=== PATIENT | female | born 1930 | race Caucasian/White ===

== ENCOUNTER 2018-06-28 16:28 | Inpatient (IN) ==
--- NOTE | 2018-06-28 17:21 | ED ---
HPI General Chief Complaint: Syncope Stated Complaint: syncope Time Seen by Provider: 06/28/18 16:32 Source: EMS, RN notes reviewed and old records reviewed Mode of arrival: EMS Limitations: altered mental status History of Present Illness HPI narrative: 87-year-old female arrives via EMS. 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 Blood pressure on scene was in the 90s. The patient was rushed to the ED. She has no pain here however history is limited due to forgetfulness. History is obtained primarily by medical records and EMS. MD complaint: collapsed Onset (ago): minute(s) (30) -: second(s) Witnessed: yes - by other Context: other (While doing hair) Injuries sustained associated with event: none Current symptoms: none Related Data Home Medications Medication Instructions Recorded Confirmed amiodarone 200 mg PO DAILY 06/28/18 06/28/18 collagenase clostridium histo. 1 applic TOPICAL 3XW 06/28/18 06/28/18 [Santyl] furosemide 20 mg PO Q OTHER DAY PRN 06/28/18 06/28/18 isosorbide mononitrate 30 mg PO HS 06/28/18 06/28/18 lisinopril 5 mg PO DAILY 06/28/18 06/28/18 potassium chloride 20 meq PO DAILY 06/28/18 06/28/18 spironolactone 12.5 mg PO DAILY 06/28/18 06/28/18 Allergies Allergy/AdvReac Type Severity Reaction Status Date / Time Sulfonylureas Allergy Intermediate rash Unverified 06/28/18 16:42 Review of Systems ROS Unobtainable ROS Unobtainable: unobtainable due to mental condition PMFSH Medical History Medical History Atherosclerotic heart disease (Acute) CHF (congestive heart failure) (Acute) COPD (chronic obstructive pulmonary disease) (Acute) Chronic kidney disease (Acute) Osteoporosis (Acute) Social History Social History Second Hand Smoke Exposure: No Smoking Status: Never smoker How Often Do You Have a Drink Containing Alcohol: Never Recent Travel in [place] within the Last 8 Weeks: No Recent Out of Country Travel within the Last 8 Weeks: No Immunization History Tetanus Immunization: Unable to Assess Hx Influenza Vaccine This Season: Unable to Assess Exam Narrative Exam Narrative: GENERAL: Well-nourished well-developed 87-year-old female no acute distress SKIN: Focused skin assessment warm/dry. HEAD: Atraumatic. Normocephalic. EYES: Pupils equal and round. No scleral icterus. No injection or drainage. ENT: No nasal bleeding or discharge. Mucous membranes pink and moist. NECK: Trachea midline. No JVD. CARDIOVASCULAR: Bradycardia. Regular. RESPIRATORY: No accessory muscle use. Clear to auscultation. Breath sounds equal bilaterally. GASTROINTESTINAL: Abdomen soft, non-tender, nondistended. Hepatic and splenic margins not palpable. MUSCULOSKELETAL: No tenderness about the bony prominences. No gross abnormality NEUROLOGICAL: Cranial nerves are symmetric. Patient moves all extremities normally. Recent memory is impaired limiting history. PSYCHIATRIC: Unable to assess. Normal attire. Course Initial Documented Vital Signs Pulse Rate 50 L 06/28/18 16:30 Respiratory Rate 18 06/28/18 16:30 Blood Pressure 147/62 H 06/28/18 16:30 Pulse Oximetry 96 06/28/18 16:30 Last Documented Vital Signs Temperature 97.4 F L 06/28/18 16:42 Pulse Rate 49 L 06/28/18 18:15 Respiratory Rate 16 06/28/18 18:15 Blood Pressure 150/51 H 06/28/18 18:15 Pulse Oximetry 97 06/28/18 18:15 Critical Care Time Critical Care Time: Yes Total Critical Care Time: 45 Attestation: Aggregate critical care time was 45 minutes. Time to perform other separately billable procedures was not included in the critical care time. My time did not include minutes spent treating any other patients simultaneously or on activities that did not directly contribute to the patient's treatment. The services I provided to this patient were to treat and/or prevent clinically significant deterioration that could result in: Bradycardia with cardiopulmonary arrest I provided critical care services requiring my management, as noted below: Chart data review, documentation time, medication orders and management, vital sign assessments/reviewing monitor data, ordering and reviewing lab tests, ordering and interpreting/reviewing x-rays and diagnostic studies, care of the patient and discussion of the patient with the admitting physicians. Medical Decision Making MDM Narrative Medical decision making narrative: The patient has syncope episode with hypotension. In the ED the patient has been bradycardic in the 40s. Blood pressure has increased to 147/62. Trending the heart rate back over the past few years shows a rate in the 60s or 70s typically. We see the rate is sinus today although 2-1 block is of concern. Patient will go to the [facility] [place]. Rocephin ordered. Atropine ordered and is at bedside if the heart rate should dipped below 40. This was discussed with the RN. Medical Records Medical records reviewed: Yes I reviewed the patient's medical records. Lab Data Lab results reviewed: Yes I reviewed the patient's lab results. Lab results narrative: Renal insufficiency is stable Troponin 0 0.04 Urinalysis consistent with UTI Result diagrams: 06/28/18 17:20 06/28/18 17:20 Lab Results 06/28/18 06/28/18 06/28/18 Range/Units 16:49 17:20 17:20 CBC w Diff Auto diff final WBC 4.6 (4.0-11.0) th/mm3 RBC 4.15 (4.00-5.30) mil/mm3 Hgb 12.9 (11.6-15.3) gm/dL Hct 39.4 (35.0-46.0) % MCV 94.9 (80.0-100.0) fL MCH 31.0 (27.0-34.0) pg MCHC 32.7 (32.0-36.0) % RDW 13.6 (11.6-17.2) % Plt Count 103 L (150-450) th/mm3 MPV 7.2 (7.0-11.0) fL Neut % (Auto) 76.4 H (16.0-70.0) % Lymph % (Auto) 12.0 (9.0-44.0) % [place] % (Auto) 9.3 H (0.0-8.0) % Eos % (Auto) 1.6 (0.0-4.0) % Baso % (Auto) 0.7 (0.0-2.0) % Neut # (Auto) 3.5 (1.8-7.7) th/mm3 Lymph # (Auto) 0.6 L (1.0-4.8) th/mm3 [place] # (Auto) 0.4 (0.0-0.9) th/mm3 Eos # (Auto) 0.1 (0.0-0.4) th/mm3 Baso # (Auto) 0.0 (0.0-0.2) th/mm3 WBC Differential . Differential Comment . Sodium 138 (136-145) meq/L Potassium 4.2 (3.5-5.1) meq/L Chloride 102 (98-107) meq/L Carbon Dioxide 30.9 (21.0-32.0) meq/L Anion Gap 5 (5-15) meq/L BUN 35 H (7-18) mg/dL Creatinine 1.60 H (0.50-1.00) mg/dL Estimated GFR 30 L (>89) mL/min POC Glucose 109 (68-110) mg/dl Random Glucose 103 (74-106) mg/dL Calcium 8.2 L (8.5-10.1) mg/dL Total Bilirubin 0.5 (0.2-1.0) mg/dL AST 15 (15-37) U/L ALT 18 (10-53) U/L Alkaline Phosphatase 62 (45-117) U/L Ammonia (11-32) mcmol/L Total Creatine Kinase (26-192) U/L Troponin I 0.04 (0.02-0.05) ng/mL Total Protein 6.7 (6.4-8.2) g/dL Albumin 3.3 L (3.4-5.0) g/dL TSH 5.270 H (0.358-3.740) uIU/mL Urine Color (Yellw/Straw) Urine Clarity (Clear) Urine pH (5.0-8.5) Ur Specific [place] (1.002-1.035) Urine Protein (Neg-Trace) mg/dL Urine Glucose (UA) (Negative) mg/dL Urine Ketones (Negative) mg/dL Urine Occult Blood (Negative) Urine Nitrate (Negative) Urine Bilirubin (Negative) Urine Urobilinogen (Less than 2) mg/dL Ur Leukocyte Esterase (Negative) Urine RBC (0-3) /hpf Urine WBC (0-5) /hpf Ur Squamous Epith Cells (0-5) /hpf Triple Phos Crystals (None) /hpf Urine Bacteria (None) /hpf Micro UA Comment Urine Culture Comments 06/28/18 06/28/18 06/28/18 Range/Units 17:20 17:20 17:20 CBC w Diff WBC (4.0-11.0) th/mm3 RBC (4.00-5.30) mil/mm3 Hgb (11.6-15.3) gm/dL Hct (35.0-46.0) % MCV (80.0-100.0) fL MCH (27.0-34.0) pg MCHC (32.0-36.0) % RDW (11.6-17.2) % Plt Count (150-450) th/mm3 MPV (7.0-11.0) fL Neut % (Auto) (16.0-70.0) % Lymph % (Auto) (9.0-44.0) % [place] % (Auto) (0.0-8.0) % Eos % (Auto) (0.0-4.0) % Baso % (Auto) (0.0-2.0) % Neut # (Auto) (1.8-7.7) th/mm3 Lymph # (Auto) (1.0-4.8) th/mm3 [place] # (Auto) (0.0-0.9) th/mm3 Eos # (Auto) (0.0-0.4) th/mm3 Baso # (Auto) (0.0-0.2) th/mm3 WBC Differential Differential Comment Sodium (136-145) meq/L Potassium (3.5-5.1) meq/L Chloride (98-107) meq/L Carbon Dioxide (21.0-32.0) meq/L Anion Gap (5-15) meq/L BUN (7-18) mg/dL Creatinine (0.50-1.00) mg/dL Estimated GFR (>89) mL/min POC Glucose (68-110) mg/dl Random Glucose (74-106) mg/dL Calcium (8.5-10.1) mg/dL Total Bilirubin (0.2-1.0) mg/dL AST (15-37) U/L ALT (10-53) U/L Alkaline Phosphatase (45-117) U/L Ammonia Less than 10 L (11-32) mcmol/L Total Creatine Kinase 38 (26-192) U/L Troponin I (0.02-0.05) ng/mL Total Protein (6.4-8.2) g/dL Albumin (3.4-5.0) g/dL TSH (0.358-3.740) uIU/mL Urine Color Yellow (Yellw/Straw) Urine Clarity Cloudy H (Clear) Urine pH 8.5 (5.0-8.5) Ur Specific [place] Less/equal 1.005 (1.002-1.035) Urine Protein Negative (Neg-Trace) mg/dL Urine Glucose (UA) Negative (Negative) mg/dL Urine Ketones Negative (Negative) mg/dL Urine Occult Blood Negative (Negative) Urine Nitrate Negative (Negative) Urine Bilirubin Negative (Negative) Urine Urobilinogen 1.0 (Less than 2) mg/dL Ur Leukocyte Esterase Small H (Negative) Urine RBC 0-3 (0-3) /hpf Urine WBC 0-5 (0-5) /hpf Ur Squamous Epith Cells 0-5 (0-5) /hpf Triple Phos Crystals Few H (None) /hpf Urine Bacteria Many H (None) /hpf Micro UA Comment Culture indicated Urine Culture Comments Culture indicated Imaging Data Radiologist's impression: Chest X-Ray 06/28/18 16:42 CONCLUSION: Minimal basilar atelectasis or scarring. Aortic stent graft as above. Head CT 06/28/18 16:42 CONCLUSION: 1. No acute intracranial abnormality. 2. Chronic small vessel ischemic change. 3. 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 . ECG Data Attestation: I personally reviewed and interpreted this ECG as follows: Interpretation: EKG shows a regular rhythm with a rate of 44 right bundle branch block present Discharge Plan Discharge Disposition Patient Disposition: 30 Still Patient Physicians Team ED Provider: Brody Kimble Primary Care Provider: UNKNOWN, Rxs /Orders / Referrals /Forms Prescriptions: No Action amiodarone 200 mg Tablet 200 mg PO DAILY RF: 0 isosorbide mononitrate 30 mg Tablet Extended Release 24 Hr 30 mg PO HS RF: 0 spironolactone 25 mg Tablet 12.5 mg PO DAILY RF: 0 potassium chloride 40 mEq/15 mL Liquid 20 meq PO DAILY RF: 0 lisinopril 5 mg Tablet 5 mg PO DAILY RF: 0 furosemide 20 mg Tablet 20 mg PO Q OTHER DAY PRN (Reason: Edema) RF: 0 collagenase clostridium histo. [Santyl] 250 unit/gram Ointment 1 applic TOPICAL 3XW RF: 0 Discharge Interventions Interventions: Vital Signs Last Done: 06/28/18 16:30 Status ED Status: With Doctor
[2018-06-28 17:31] LABS: Baso % (Auto) 0.7 % (0.0-2.0); Eos # (Auto) 0.1 th/mm3 (0.0-0.4); Eos % (Auto) 1.6 % (0.0-4.0); Hematocrit 39.4 % (35.0-46.0); Hemoglobin 12.9 gm/dL (11.6-15.3); Lymph # (Auto) 0.6 th/mm3 (1.0-4.8); Mean Corpuscular HGB Conc 32.7 % (32.0-36.0); Mean Corpuscular Volume 94.9 fL (80.0-100.0); Mean Platelet Volume 7.2 fL (7.0-11.0); Mono # (Auto) 0.4 th/mm3 (0.0-0.9); Mono % (Auto) 9.3 % (0.0-8.0); Neut # (Auto) 3.5 th/mm3 (1.8-7.7); Neut % (Auto) 76.4 % (16.0-70.0); Platelet Count 103 th/mm3 (150-450); Red Blood Count 4.15 mil/mm3 (4.00-5.30); Red Cell Distribution Width 13.6 % (11.6-17.2); White Blood Count 4.6 th/mm3 (4.0-11.0)
[2018-06-28 17:35] LABS: Bilirubin,Urine Negative (Negative); Clarity,Urine Cloudy (Clear); Color,Urine Yellow (Yellw/Straw); Glucose,Urine (UA) Negative (Negative); Leukocyte Esterase,Urine Small (Negative); Nitrite,Urine Negative (Negative); PH,Urine 8.5 (5.0-8.5); RBC,Urine 0-3 /hpf (0-3); Specific Gravity,Urine Less/Equal 1.005 (1.002-1.035); WBC,Urine 0-5 /hpf (0-5)
[2018-06-28 17:36] LABS: Bacteria,Urine Many /hpf; Squamous Epithelial Cell,Urine 0-5 /hpf (0-5); Triple Phosphate Crystal,Urine Few /hpf
--- NOTE | 2018-06-28 17:37 | XR ---
EXAM DATE: 06/28/2018 5:32 PM EDT AGE/SEX: 87 years / Female INDICATIONS: Short of breath. CLINICAL DATA: This is the patient's initial encounter. Patient reports that signs and symptoms have been present for 1 day and indicates a pain score of Nonresponsive. MEDICAL/SURGICAL HISTORY: Non-responsive. . Aortic mesh surgery. COMPARISON: No prior exams available for comparison. FINDINGS: Previous stent graft present in the ascending, transverse and descending thoracic aorta as well as me diastinal vessel. Basilar atelectasis or scarring. Cardiomegaly. No pneumothorax. No significant effu billie. CONCLUSION: Minimal basilar atelectasis or scarring. Aortic stent graft as above. Electronically signed by: Abhijit Roper MD 06/28/2018 5:36 PM EDT
[2018-06-28 17:38] LABS: Chloride 102 meq/L (98-107); Potassium 4.2 meq/L (3.5-5.1); Sodium 138 meq/L (136-145)
[2018-06-28 17:41] LABS: Albumin 3.3 g/dL (3.4-5.0); Anion Gap 5 meq/L (5-15); Blood Urea Nitrogen 35 mg/dL (7-18); Calcium 8.2 mg/dL (8.5-10.1); Carbon Dioxide 30.9 meq/L (21.0-32.0); Glucose,Random 103 mg/dL (74-106)
[2018-06-28 17:44] LABS: Alanine Aminotransferase 18 U/L (10-53)
[2018-06-28 17:45] LABS: Aspartate Aminotransferase 15 U/L (15-37); Glomerular Filtration Rate 30 mL/min (>89)
[2018-06-28 17:46] LABS: Total Protein 6.7 g/dL (6.4-8.2)
[2018-06-28 17:47] LABS: Alkaline Phosphatase 62 U/L (45-117)
[2018-06-28 17:50] LABS: Troponin I 0.04 ng/mL (0.02-0.05)
--- NOTE | 2018-06-28 17:54 | CT ---
EXAM DATE: 06/28/2018 5:42 PM EDT AGE/SEX: 87 years / Female INDICATIONS: Syncope. CLINICAL DATA: This is the patient's initial encounter. Patient reports that signs and symptoms have been present for 1 day and indicates a pain score of 0/10. MEDICAL/SURGICAL HISTORY: None. None. RADIATION DOSE: 55.67 CTDI (mGy) COMPARISON: No prior exams available for comparison. TECHNIQUE: CT of the head without contrast. Using automated exposure control and adjustment of the mA and/or kV according to patient size, radiation dose was kept as low as reasonably achievable to ob tain optimal diagnostic quality images. DICOM format image data is available electronically for revi ew and comparison. FINDINGS: Cerebrum: Periventricular low attenuation change involving both cerebral hemispheres. Small chronic lacunar infarction involving the head of caudate on the left. The ventricles are normal for age. No evidence of midline shift, mass lesion, hemorrhage or acute infarction. No extraaxial fluid collecti ons are seen. Posterior Fossa: The cerebellum and brainstem are intact. The 4th ventricle is midline. The cerebe llopontine angle is unremarkable. Extracranial: The visualized portion of the orbits is intact. Skull: The calvaria is intact. An elliptical area of sclerosis is seen involving the lateral parieta l bone on the left. This involves the outer table. No evidence of skull fracture. CONCLUSION: 1. No acute intracranial abnormality. 2. Chronic small vessel ischemic change. 3. 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 . Electronically signed by: Nicholas Roy MD 06/28/2018 5:52 PM EDT
[2018-06-28] MEDS ORDERED: Atropine Inj 1 MG/10 ML Syringe IV.PUSH ONE (18:25)
[2018-06-28 19:20] LABS: Amphetamine Screen,Urine Neg (Neg); Barbiturate Screen,Urine Neg (Neg); Cannabinoid Screen,Urine Neg (Neg); Cocaine Screen,Urine Neg (Neg)
[2018-06-28 19:22] LABS: Opiate Screen,Urine Neg (Neg)
--- NOTE | 2018-06-28 21:22 | P.HPCC ---
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 Blood pressure on scene was in the 90s. The patient was rushed to the ED at [place]. She has had no pain there however history is limited due to forgetfulness. History is obtained primarily from medical records. The weakness loss of consciousness was about 30 seconds. No seizure activity. The patient's heart rate at [place] emergency department was found to be in 40s and she has been transferred to [facility] for further cardiological evaluation. Inpatient Certification: I certify that the inpatient services were ordered in accordance with Medicare regulations governing the order. This includes certification that hospital inpatient services are reasonable and necessary and in the case of services not specified as inpatient-only under 42 CFR 419.22(n), that they are appropriately provided as inpatient services in accordance to with the 2-midnight benchmark under 43 CFR 412.3(e) Review of Systems unobtainable due to mental condition PMFSH - History History Provided By: Patient, Medical Record - Medical History Medical History: Medical History (Last Updated 06/28/18 @ 17:58 by Kezia Blount RN) Atherosclerotic heart disease CHF (congestive heart failure) COPD (chronic obstructive pulmonary disease) Chronic kidney disease Osteoporosis - Tobacco History Second Hand Smoke Exposure: No Smoking Status: Never smoker - Alcohol History How Often Do You Have a Drink Containing Alcohol: Never - Travel History Recent Travel in the [place] Within the Last 8 Weeks: No Recent Travel Out of the Country Within the Last 8 Weeks: No - Immunization History Tetanus Immunization: Unable to Assess Hx Influenza Vaccine This Season: Unable to Assess Medications and Allergies Active Medications: Active Medications Sodium Chloride (Ns Flush) 2 ml IV.FLUSH PRN PRN PRN Reason: FLUSH AFTER USING IV ACCESS Active Medications Acetaminophen (Tylenol) 650 mg PO Q6H PRN PRN Reason: PAIN 1-10 AND/OR FEVER >101F Al Hydroxide/Mg Hydroxide (Milk Of Magnesia Liq) 30 ml PO Q12H PRN PRN Reason: Mild Constipation Albuterol (Duoneb Neb (Prn)) 1 ampul NEB Q2HR NEB PRN PRN Reason: WHEEZING Bisacodyl (Dulcolax Supp) 10 mg RECTAL DAILY PRN PRN Reason: SEVERE CONSITIPATION Chlorhexidine Gluconate (Chlorhexidine 2% Cloth) 3 pack TOPICAL DAILY@0400 ROXI Stop: 07/04/18 03:59 Chlorhexidine Gluconate (Chlorhexidine 2% Cloth) 3 pack TOPICAL DAILY@0400 PRN PRN Reason: Extra cloth needed Stop: 07/04/18 03:59 Famotidine (Pepcid Pf Inj) 10 mg IV.PUSH Q12HR [facility] Heparin Sodium (Porcine) (Heparin Inj) 5,000 units SQ Q8H [facility] Last Admin: 06/28/18 23:21 Dose: 5,000 units Sodium Chloride (Ns Inj) 1,000 mls @ 84 mls/hr IV.CONT .[id number] [facility] Last Admin: 06/28/18 23:19 Dose: 84 mls/hr Lactulose (Lactulose Liq) 30 ml PO DAILY PRN PRN Reason: SEVERE CONSITIPATION Metoclopramide HCl (Reglan Inj) 5 mg IV.PUSH Q6HR [facility]; Protocol Last Admin: 06/29/18 01:37 Dose: 5 mg Ondansetron HCl (Zofran Inj) 4 mg IV.PUSH Q6H PRN PRN Reason: NAUSEA OR VOMITING Senna/Docusate Sodium (Sheron-Colace) 1 tab PO BID [facility] Sennosides (Senokot) 17.2 mg PO Q12H PRN PRN Reason: Moderate Constipation Sodium Chloride (Ns Flush) 2 ml IV.FLUSH BID [facility] Sodium Chloride (Ns Flush) 2 ml IV.FLUSH UNSCH PRN PRN Reason: FLUSH AFTER USING IV ACCESS Allergies Allergy/AdvReac Type Severity Reaction Status Date / Time Sulfonylureas Allergy Intermediate rash Verified 06/28/18 19:40 Home Medications Medication Instructions Recorded Confirmed Type amiodarone 200 mg PO DAILY 06/28/18 06/28/18 History collagenase clostridium histo. 1 applic TOPICAL 3XW 06/28/18 06/28/18 History [Santyl] furosemide 20 mg PO Q OTHER DAY PRN 06/28/18 06/28/18 History isosorbide mononitrate 30 mg PO HS 06/28/18 06/28/18 History lisinopril 5 mg PO DAILY 06/28/18 06/28/18 History potassium chloride 20 meq PO DAILY 06/28/18 06/28/18 History spironolactone 12.5 mg PO DAILY 06/28/18 06/28/18 History Results - Labs CBC & Chem 7: 06/28/18 17:20 06/28/18 17:20 Labs: Short CBC 06/28/18 Range/Units 17:20 WBC 4.6 (4.0-11.0) th/mm3 Hgb 12.9 (11.6-15.3) gm/dL Hct 39.4 (35.0-46.0) % Plt Count 103 L (150-450) th/mm3 BMP 06/28/18 17:20 Sodium 138 Potassium 4.2 Chloride 102 Carbon Dioxide 30.9 BUN 35 H Creatinine 1.60 H Calcium 8.2 L Cardiac Enzymes 06/28/18 06/28/18 Range/Units 17:20 17:20 Total Creatine Kinase 38 (26-192) U/L Troponin I 0.04 (0.02-0.05) ng/mL Liver Function 06/28/18 Range/Units 17:20 Total Bilirubin 0.5 (0.2-1.0) mg/dL AST 15 (15-37) U/L ALT 18 (10-53) U/L Alkaline Phosphatase 62 (45-117) U/L Albumin 3.3 L (3.4-5.0) g/dL Urine 06/28/18 Range/Units 17:20 Urine Color Yellow (Yellw/Straw) Urine Clarity Cloudy H (Clear) Urine pH 8.5 (5.0-8.5) Ur Specific [place] Less/equal 1.005 (1.002-1.035) Urine Protein Negative (Neg-Trace) mg/dL Urine Glucose (UA) Negative (Negative) mg/dL - Imaging Impressions Chest X-Ray 06/28/18 16:42 CONCLUSION: Minimal basilar atelectasis or scarring. Aortic stent graft as above. Head CT 06/28/18 16:42 CONCLUSION: 1. No acute intracranial abnormality. 2. Chronic small vessel ischemic change. 3. 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 . Exam Vital signs: Vital Signs 06/28/18 16:30 06/28/18 16:42 06/28/18 16:46 Temperature 97.4 F L Pulse Rate 50 L 45 L Respiratory Rate 18 16 Blood Pressure 147/62 H 123/64 Pulse Oximetry 96 97 96 06/28/18 18:15 06/28/18 19:45 06/28/18 19:48 Temperature Pulse Rate 49 L 48 L 48 L Respiratory Rate 16 20 Blood Pressure 150/51 H 159/64 H Pulse Oximetry 97 94 L 06/28/18 20:20 06/28/18 20:54 Temperature Pulse Rate 46 L Respiratory Rate 18 Blood Pressure 132/84 Pulse Oximetry 96 Intake & Output 06/28/18 06/28/18 06/29/18 06:59 18:59 06:59 Weight 57 kg - Constitutional mild distress - Routine HEENT Exam Head: Present: normocephalic, atraumatic Eye: Present: PERRL ENT: Present: mucous membranes moist - Routine Neck Exam Present: full ROM. Absent: JVD, carotid bruit - Routine Respiratory Exam Absent: accessory muscle use, rhonchi, stridor, wheezes - Routine Cardiovascular Exam Present: RRR, S1, S2 - Routine Abdominal Exam Present: soft, normoactive bowel sounds. Absent: tenderness - Routine Extremities Exam Absent: cyanosis, clubbing, edema - Routine Skin Exam Present: intact. Absent: cyanosis, erythema - Routine Neurological Exam Present: alert, altered mental status, moving all extremities Caprini VTE Risk Assessment Caprini VTE Risk Assessment: Moderate/High Risk (score >= 2) Caprini Risk Assessment Model: Point Value = 1 Point Value = 2 Point Value = 3 Point Value = 5 Age 41-60 Minor surgery BMI > 25 kg/m2 Swollen legs Varicose veins or History of unexplained or recurrent spontaneous Oral contraceptives or hormone replacement Sepsis (< 1 month) Serious lung disease, including pneumonia (< 1 month) Abnormal pulmonary function Acute myocardial infarction Congestive heart failure (< 1 month) History of inflammatory bowel disease Medical patient at bed rest Age 61-74 Arthroscopic surgery Major open surgery (> 45 min) Laparoscopic surgery (> 45 min) Malignancy Confined to bed (> 72 hours) Immobilizing plaster cast Central venous access Age >= 75 History of VTE Family history of VTE Factor V Leiden Prothrombin [id number] Lupus anticoagulant Anticardiolipin antibodies Elevated serum homocysteine Heparin-induced thrombocytopenia Other congenital or acquired thrombophilia Stroke (< 1 month) Elective arthroplasty Hip, pelvis, or leg fracture Acute spinal cord injury (< 1 month) Prophylaxis Regimen: Total Risk Factor Score Risk Level Prophylaxis Regimen 0-1 Low Early ambulation 2 Moderate Order ONE of the following: *Sequential Compression Device (SCD) *Heparin 5000 units SQ BID 3-4 Higher Order ONE of the following medications: *Heparin 5000 units SQ TID *Enoxaparin/Lovenox 40 mg SQ daily (WT < 150 kg, CrCl > 30 mL/min) *Enoxaparin/Lovenox 30 mg SQ daily (WT < 150 kg, CrCl > 10-29 mL/min) *Enoxaparin/Lovenox 30 mg SQ BID (WT < 150 kg, CrCl > 30 mL/min) AND/OR *Sequential Compression Device (SCD) 5 or more Highest Order ONE of the following medications: *Heparin 5000 units SQ TID (Preferred with Epidurals) *Enoxaparin/Lovenox 40 mg SQ daily (WT < 150 kg, CrCl > 30 mL/min) *Enoxaparin/Lovenox 30 mg SQ daily (WT < 150 kg, CrCl > 10-29 mL/min) *Enoxaparin/Lovenox 30 mg SQ BID (WT < 150 kg, CrCl > 30 mL/min) AND *Sequential Compression Device (SCD) Assessment and Plan - Assessment and Plan Plan: Syncope -Likely cardiogenic -Telemetry -Hold amiodarone -2D echo -Rule out ACS with series of troponins and EKGs -Cardiology consultation Bradycardia -Hold amiodarone -Further per cardiology COPD -DuoNeb scheduled and as needed -No indication for steroid CHF -No exacerbation -Hold home meds due to borderline blood pressures -Resume when hemodynamically improve DVT GI prophylaxis -Teds SCDs -Subcu heparin -Pepcid Critical Care: The total critical care time was 35 minutes. Time to perform other separately billable procedures was not included in the critical care time.
[2018-06-28] MEDS ORDERED: Bisacodyl 10 MG Supp RECTAL PRN (21:29)
[2018-06-28] MEDS ORDERED: Acetaminophen 325 MG Tablet PO PRN (21:31)
[2018-06-28] MEDS: Sod Chloride 0.9% Inj 1,000 ML IV.CONT SCH (23:19)
[2018-06-28] MEDS: Heparin - SQ 10,000 UNITS/ML Vial SQ SCH (23:21)
[2018-06-29] MEDS ORDERED: Chlorhexidine Gluconate 2% 1 Pack (2 Cloths) TOPICAL PRN (04:00)
[2018-06-29] MEDS: Chlorhexidine Gluconate 2% 1 Pack (2 Cloths) TOPICAL SCH (05:24)
[2018-06-29] MEDS: Heparin - SQ 10,000 UNITS/ML Vial SQ SCH ×3 (06:08→22:10)
[2018-06-29 06:11] LABS: Activated Partial Thrombo Time 35.5 sec (24.3-30.1); INR 1.1 Ratio; Prothrombin Time 11.4 sec (9.8-11.6)
[2018-06-29 06:12] LABS: Baso % (Auto) 0.6 % (0.0-2.0); Eos # (Auto) 0.1 th/mm3 (0.0-0.4); Eos % (Auto) 1.4 % (0.0-4.0); Hematocrit 38.5 % (35.0-46.0); Hemoglobin 12.7 gm/dL (11.6-15.3); Lymph # (Auto) 0.9 th/mm3 (1.0-4.8); Lymph % (Auto) 17.9 % (9.0-44.0); Mean Corpuscular Hemoglobin 30.9 pg (27.0-34.0); Mean Corpuscular Volume 93.6 fL (80.0-100.0); Mean Platelet Volume 8.4 fL (7.0-11.0); Mono # (Auto) 0.4 th/mm3 (0.0-0.9); Mono % (Auto) 8.5 % (0.0-8.0); Neut # (Auto) 3.5 th/mm3 (1.8-7.7); Neut % (Auto) 71.6 % (16.0-70.0); Platelet Count 101 th/mm3 (150-450); Red Blood Count 4.11 mil/mm3 (4.00-5.30); Red Cell Distribution Width 13.5 % (11.6-17.2); White Blood Count 4.9 th/mm3 (4.0-11.0)
[2018-06-29 06:32] LABS: Albumin 3.2 g/dL (3.4-5.0); Anion Gap 10 meq/L (5-15); Aspartate Aminotransferase 14 U/L (15-37); Blood Urea Nitrogen 26 mg/dL (7-18); Calcium 8.6 mg/dL (8.5-10.1); Chloride 103 meq/L (98-107); Glomerular Filtration Rate 37 mL/min (>89); Glucose,Random 88 mg/dL (74-106); Magnesium 2.3 mg/dL (1.5-2.5); Potassium 4.5 meq/L (3.5-5.1); Sodium 142 meq/L (136-145)
[2018-06-29 06:38] LABS: Alanine Aminotransferase 15 U/L (10-53); Alkaline Phosphatase 61 U/L (45-117); Total Protein 6.6 g/dL (6.4-8.2); Troponin I 0.04 ng/mL (0.02-0.05)
[2018-06-29] MEDS: Senna/Docusate Sodium 8.6/50 MG Tablet PO SCH ×2 (08:22→20:47)
[2018-06-29] MEDS: Famotidine PF Inj 20 MG/2 ML Vial IV.PUSH SCH ×2 (08:22→20:46)
[2018-06-29] MEDS ORDERED: Dextrose 50% in Water 50 ML Vial IV.PUSH PRN (09:48)
--- NOTE | 2018-06-29 09:51 | P.PNCC ---
Subjective Subjective Remarks/Hospital Course: 87-year-old female was doing her hair at her [facility] when she became unresponsive and fell onto a chair. Blood pressure on scene was in the 90s. The patient was rushed to the ED at [place]. She has had no pain there however history is limited due to forgetfulness. History is obtained primarily from medical records. The weakness loss of consciousness was about 30 seconds. No seizure activity. The patient's heart rate at [place] emergency department was found to be in 40s and she has been transferred to [facility] for further cardiological evaluation. 06/29 Patient is awake and alert lying in bed in NAD. Afebrile. Objective Vital Signs / I&O: Vital Signs 06/28/18 16:30 06/28/18 16:42 06/28/18 16:46 Temperature 97.4 F L Pulse Rate 50 L 45 L Respiratory Rate 18 16 Blood Pressure 147/62 H 123/64 Pulse Oximetry 96 97 96 06/28/18 18:15 06/28/18 19:45 06/28/18 19:48 Temperature Pulse Rate 49 L 48 L 48 L Respiratory Rate 16 20 Blood Pressure 150/51 H 159/64 H Pulse Oximetry 97 94 L 06/28/18 20:20 06/28/18 20:54 06/28/18 22:10 Temperature Pulse Rate 46 L 46 L Respiratory Rate 18 23 Blood Pressure 132/84 Pulse Oximetry 96 100 06/28/18 22:23 06/28/18 23:00 06/28/18 23:03 Temperature Pulse Rate 45 L 50 L 46 L Respiratory Rate 31 H 27 H Blood Pressure 172/72 H Pulse Oximetry 100 100 06/29/18 00:00 06/29/18 00:01 06/29/18 00:06 Temperature 97.9 F 97.9 F Pulse Rate 63 63 53 L Respiratory Rate 37 H 37 H 34 H Blood Pressure 167/78 H 167/78 H Pulse Oximetry 94 L 94 L 99 06/29/18 01:00 06/29/18 01:01 06/29/18 02:00 Temperature Pulse Rate 47 L 47 L 44 L Respiratory Rate 32 H 41 H 30 H Blood Pressure 126/59 L 136/60 Pulse Oximetry 97 100 100 06/29/18 03:00 06/29/18 03:01 06/29/18 04:00 Temperature Pulse Rate 44 L 45 L 45 L Respiratory Rate 22 32 H 23 Blood Pressure 142/63 H 149/66 H Pulse Oximetry 100 100 100 06/29/18 05:00 06/29/18 06:00 06/29/18 07:35 Temperature Pulse Rate 51 L 53 L Respiratory Rate 24 20 Blood Pressure 161/72 H 154/66 H Pulse Oximetry 100 99 97 Intake & Output 06/28/18 06/29/18 06/29/18 18:59 06:59 18:59 Intake Total 100 / 100 Output Total 430 / 430 Balance -330 / -330 Weight 57 kg 58 kg Intake: Oral 100 / 100 Output: Urine 430 / 430 Other: # Voids 1 # Incontinent Voids 2 Date of Last Bowel Movement 06/28/18 Weight On Admission 56 kg Result Diagrams: 06/29/18 03:09 06/29/18 03:09 Other Results: Laboratory Results - last 12 hr 06/28/18 06/28/18 06/28/18 21:00 22:51 23:37 WBC RBC Hgb Hct MCV MCH MCHC RDW Plt Count MPV Neut % (Auto) Lymph % (Auto) Mcintosh % (Auto) Eos % (Auto) Baso % (Auto) Neut # (Auto) Lymph # (Auto) Mcintosh # (Auto) Eos # (Auto) Baso # (Auto) WBC Differential Differential Comment PT INR APTT Sodium Potassium Chloride Carbon Dioxide Anion Gap BUN Creatinine Estimated GFR POC Glucose 79 Random Glucose Calcium Phosphorus Magnesium Total Bilirubin AST ALT Alkaline Phosphatase Troponin I 0.06 H Total Protein Albumin Nasal Screen MRSA (PCR) Not detected 06/29/18 06/29/18 06/29/18 03:09 03:09 03:09 WBC 4.9 RBC 4.11 Hgb 12.7 Hct 38.5 MCV 93.6 MCH 30.9 MCHC 33.0 RDW 13.5 Plt Count 101 L MPV 8.4 Neut % (Auto) 71.6 H Lymph % (Auto) 17.9 Mcintosh % (Auto) 8.5 H Eos % (Auto) 1.4 Baso % (Auto) 0.6 Neut # (Auto) 3.5 Lymph # (Auto) 0.9 L Mcintosh # (Auto) 0.4 Eos # (Auto) 0.1 Baso # (Auto) 0.0 WBC Differential . Differential Comment Auto diff final PT 11.4 INR 1.1 APTT 35.5 H Sodium 142 Potassium 4.5 Chloride 103 Carbon Dioxide 29.0 Anion Gap 10 BUN 26 H Creatinine 1.36 H Estimated GFR 37 L POC Glucose Random Glucose 88 Calcium 8.6 Phosphorus 3.0 Magnesium 2.3 Total Bilirubin 0.4 AST 14 L ALT 15 Alkaline Phosphatase 61 Troponin I 0.04 Total Protein 6.6 Albumin 3.2 L Nasal Screen MRSA (PCR) Imaging: Chest X-Ray 06/28/18 16:42 CONCLUSION: Minimal basilar atelectasis or scarring. Aortic stent graft as above. Head CT 06/28/18 16:42 CONCLUSION: 1. No acute intracranial abnormality. 2. Chronic small vessel ischemic change. 3. 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 . Objective Remarks: GENERAL: Patient is 87 yo lying in bed in NAD SKIN: Warm and dry. HEAD: Normocephalic. EYES: No scleral icterus. No injection or drainage. NECK: Supple, trachea midline. No JVD or lymphadenopathy. CARDIOVASCULAR: Regular rate and rhythm without murmurs, gallops, or rubs. RESPIRATORY: Breath sounds equal bilaterally. No accessory muscle use. GASTROINTESTINAL: Abdomen soft, non-tender, nondistended. MUSCULOSKELETAL: No cyanosis, or edema. Neuro: Awake and alert Assessment and Plan - Assessment and Plan Plan: 1)Resp Insuff 2)Syncope likely cardiogenic 3)Bradycardia 5)COPD 6)hx CHF 7)CHIARA Neuro: Awake and alert, avoid sedatives CT brain: No acute findings Pulm: Continue with oxygen keep sats >92% Bronchodilators, CXR: Minimal basilar atelectasis CV: Monitor HR and BP keep MAP>65mmHg Cards consulted- Dr. Padron. For 2D echo : Monitor renal function, I/O's, electrolytes replacement as needed. Renal function is improving. Cr: 1.36 from 1.60 d/c IVF GI: On PO diet ID: Monitor for signs of infections ( Fever, WBC) Heme: Monitor CBC Endo: SSI if needed for glycemic control TSH: 5.2, FT3: low 1.63, FT4: 1.26 start Synthroid 25mcg daily DVT GI prophylaxis -Teds SCDs -Subcu heparin -Pepcid Will sign off and transfer care to [facility] 2
[2018-06-29 11:32] LABS: Free T4 (Free Thyroxine) 1.26 ng/dL (0.76-1.46); Triiodothyronine (T3) Free 1.63 pg/mL (2.18-3.98)
[2018-06-29] MEDS: Insulin NovoLOG Aspart Correctional Sugar Inj SQ SCH ×3 (11:51→23:23)
[2018-06-29] MEDS: Sod Chloride 0.9% Inj 1,000 ML IV.CONT SCH (13:09)
--- NOTE | 2018-06-29 14:27 | P.CONCA ---
<Alivia Shen N - Last Filed: 06/29/18 15:08> History of Present Illness Service: Cardiology Consult date: 06/29/18 Requesting Physician: Cash Galvan Reason for Consult: Syncope Primary Care Provider: Pete Doan MD Family Provider: Pete Doan MD Chief Complaint: Syncope History of Present Illness: This is a very pleasant 87-year-old female who was getting her hair done at her [facility] when she became unresponsive and fell back into the chair. She was rushed to [facility] emergency department via [facility]. Her heart rate at [facility] was in the 40s and she was transferred to [facility]. She has a history of cardiomyopathy thoracic aortic aneurysm repair, shortness of breath, atherosclerotic heart disease, congestive heart failure, chronic obstructive pulmonary disease, chronic kidney disease, atrial flutter, aortic insufficiency , mitral regurgitation and pulmonary hypertension. Patient is known to Dr. Padron. She is currently unable to give details about the event due to her inability to remember so history obtained from medical records. Currently she denies any chest pain, palpitations, pressure, dizziness or shortness of breath. Patient is currently hypertensive systolic in the 150s-160s. Sinus bradycardia on telemetry. Review of Systems General: Patient denies fevers, chills, and recent travel. HEENT: Patient denies headache, sore throat, difficulty swallowing. Cardiovascular: Patient denies chest pain, dizziness. Denies sensation of heart beating rapidly or irregularly. No syncope. Respiratory: Denies shortness of breath or inspirational chest discomfort. Denies coughing wheezing or hemoptysis. GI: Patient denies nausea, vomiting, diarrhea, abdominal pain, bloody stools. Musculoskeletal: Patient denies joint pain or edema. Denies calf pain or edema. Neurovascular: Patient denies numbness, tingling, weakness in extremities. Denies headache. Complains of forgetfulness. Endocrine: Denies polyuria and polydipsia. Hematologic: Denies easy bruising. Skin: Denies rash or itching. PMFSH - History History Provided By: Patient, Medical Record - Medical History Medical History: Medical History (Last Reviewed 06/29/18 @ 09:33 by Fabian Larson) Atherosclerotic heart disease CHF (congestive heart failure) COPD (chronic obstructive pulmonary disease) Chronic kidney disease Osteoporosis - Tobacco History Second Hand Smoke Exposure: No Smoking Status: Never smoker - Alcohol History How Often Do You Have a Drink Containing Alcohol: Never - Travel History Recent Travel in the [place] Within the Last 8 Weeks: No Recent Travel Out of the Country Within the Last 8 Weeks: No - Immunization History Tetanus Immunization: Unable to Assess Hx Influenza Vaccine This Season: Unable to Assess Medications and Allergies Allergies Allergy/AdvReac Type Severity Reaction Status Date / Time Sulfonylureas Allergy Intermediate rash Verified 06/28/18 19:40 Home Medications Medication Instructions Recorded Confirmed Type amiodarone 200 mg PO DAILY 06/28/18 06/28/18 History collagenase clostridium histo. 1 applic TOPICAL 3XW 06/28/18 06/28/18 History [Santyl] furosemide 20 mg PO Q OTHER DAY PRN 06/28/18 06/28/18 History isosorbide mononitrate 30 mg PO HS 06/28/18 06/28/18 History lisinopril 5 mg PO DAILY 06/28/18 06/28/18 History potassium chloride 20 meq PO DAILY 06/28/18 06/28/18 History spironolactone 12.5 mg PO DAILY 06/28/18 06/28/18 History Active Medications: Active Medications Acetaminophen (Tylenol) 650 mg PO Q6H PRN PRN Reason: PAIN 1-10 AND/OR FEVER >101F Al Hydroxide/Mg Hydroxide (Milk Of [place] Liq) 30 ml PO Q12H PRN PRN Reason: Mild Constipation Albuterol (Duoneb Neb (Prn)) 1 ampul NEB Q2HR NEB PRN PRN Reason: WHEEZING Albuterol (Duoneb Neb (Paul)) 1 ampul NEB Q4HR NEB [facility] Last Admin: 06/29/18 11:28 Dose: 1 ampul Bisacodyl (Dulcolax Supp) 10 mg RECTAL DAILY PRN PRN Reason: SEVERE CONSITIPATION Chlorhexidine Gluconate (Chlorhexidine 2% Cloth) 3 pack TOPICAL DAILY@0400 PAUL Stop: 07/04/18 03:59 Last Admin: 06/29/18 05:24 Dose: 3 pack Chlorhexidine Gluconate (Chlorhexidine 2% Cloth) 3 pack TOPICAL DAILY@0400 PRN PRN Reason: Extra cloth needed Stop: 07/04/18 03:59 Dextrose (D50w Vial) 50 ml IV.PUSH UNSCH PRN PRN Reason: PER HYPOGLYCEMIA PROTOCOL Famotidine (Pepcid Pf Inj) 10 mg IV.PUSH Q12HR [facility] Last Admin: 06/29/18 08:22 Dose: 10 mg Glucagon (Glucagon Inj) 1 mg OTHER PRN PRN PRN Reason: for Hypoglycemia Protocol Heparin Sodium (Porcine) (Heparin Inj) 5,000 units SQ Q8H [facility] Last Admin: 06/29/18 13:09 Dose: 5,000 units Sodium Chloride (Ns Inj) 1,000 mls @ 84 mls/hr IV.CONT .[id number] [facility] Last Admin: 06/29/18 13:09 Dose: 84 mls/hr Insulin Aspart (Novolog Insulin Correctional Sugar Inj) 0 unit SQ Q6HR [facility]; Protocol Last Admin: 06/29/18 11:51 Dose: Not Given Lactulose (Lactulose Liq) 30 ml PO DAILY PRN PRN Reason: SEVERE CONSITIPATION Levothyroxine Sodium (Synthroid) 25 mcg PO DAILY@0600 [facility] Metoclopramide HCl (Reglan Inj) 5 mg IV.PUSH Q6HR [facility]; Protocol Last Admin: 06/29/18 13:09 Dose: 5 mg Ondansetron HCl (Zofran Inj) 4 mg IV.PUSH Q6H PRN PRN Reason: NAUSEA OR VOMITING Senna/Docusate Sodium (Sheron-Colace) 1 tab PO BID [facility] Last Admin: 06/29/18 08:22 Dose: 1 tab Sennosides (Senokot) 17.2 mg PO Q12H PRN PRN Reason: Moderate Constipation Sodium Chloride (Ns Flush) 2 ml IV.FLUSH BID [facility] Last Admin: 06/29/18 08:22 Dose: 2 ml Sodium Chloride (Ns Flush) 2 ml IV.FLUSH UNSCH PRN PRN Reason: FLUSH AFTER USING IV ACCESS Exam Vital signs: Vital Signs 06/28/18 16:30 06/28/18 16:42 06/28/18 16:46 Temperature 97.4 F L Pulse Rate 50 L 45 L Respiratory Rate 18 16 Blood Pressure 147/62 H 123/64 Pulse Oximetry 96 97 96 06/28/18 18:15 06/28/18 19:45 06/28/18 19:48 Temperature Pulse Rate 49 L 48 L 48 L Respiratory Rate 16 20 Blood Pressure 150/51 H 159/64 H Pulse Oximetry 97 94 L 06/28/18 20:20 06/28/18 20:54 06/28/18 22:10 Temperature Pulse Rate 46 L 46 L Respiratory Rate 18 23 Blood Pressure 132/84 Pulse Oximetry 96 100 06/28/18 22:23 06/28/18 23:00 06/28/18 23:03 Temperature Pulse Rate 45 L 50 L 46 L Respiratory Rate 31 H 27 H Blood Pressure 172/72 H Pulse Oximetry 100 100 06/29/18 00:00 06/29/18 00:01 06/29/18 00:06 Temperature 97.9 F 97.9 F Pulse Rate 63 63 53 L Respiratory Rate 37 H 37 H 34 H Blood Pressure 167/78 H 167/78 H Pulse Oximetry 94 L 94 L 99 06/29/18 01:00 06/29/18 01:01 06/29/18 02:00 Temperature Pulse Rate 47 L 47 L 44 L Respiratory Rate 32 H 41 H 30 H Blood Pressure 126/59 L 136/60 Pulse Oximetry 97 100 100 06/29/18 03:00 06/29/18 03:01 06/29/18 04:00 Temperature Pulse Rate 44 L 45 L 45 L Respiratory Rate 22 32 H 23 Blood Pressure 142/63 H 149/66 H Pulse Oximetry 100 100 100 06/29/18 05:00 06/29/18 06:00 06/29/18 07:00 Temperature 98.2 F Pulse Rate 51 L 53 L 52 L Respiratory Rate 24 20 21 Blood Pressure 161/72 H 154/66 H 165/64 H Pulse Oximetry 100 99 97 06/29/18 07:35 06/29/18 08:00 06/29/18 09:00 Temperature Pulse Rate 52 L 48 L Respiratory Rate 23 22 Blood Pressure 168/70 H Pulse Oximetry 97 95 98 06/29/18 09:01 06/29/18 10:00 06/29/18 11:00 Temperature Pulse Rate 49 L 52 L 44 L Respiratory Rate Blood Pressure 139/60 140/63 Pulse Oximetry 98 100 99 06/29/18 11:22 06/29/18 11:25 06/29/18 12:00 Temperature Pulse Rate 51 L 48 L 51 L Respiratory Rate 16 21 Blood Pressure 108/57 L Pulse Oximetry 99 99 Intake & Output 06/28/18 06/29/18 06/29/18 18:59 06:59 18:59 Intake Total 100 / 100 1000 / 1000 Output Total 430 / 430 Balance -330 / -330 1000 / 1000 Weight 57 kg 58 kg Intake: IV 1000 / 1000 NS Inj 1,000 ML @ 84 mls/hr IV. 1000 / 1000 CONT .[id number] [facility] Rx#:[id number] Oral 100 / 100 Output: Urine 430 / 430 Other: # Voids 1 # Incontinent Voids 2 2 Date of Last Bowel Movement 06/28/18 06/28/18 Weight On Admission 56 kg Narrative: GENERAL: This patient is in no apparent distress. Patient speaks in clear complete sentences. Patient is pleasant. HEENT: Head is atraumatic and normocephalic. Neck is supple without lymphadenopathy and trachea is midline. No JVD or carotid bruits. CARDIOVASCULAR: Sinus bradycardia with mild murmur. No gallops or rubs. RESPIRATORY: Clear to auscultation. Breath sounds equal bilaterally. No wheezes , rales, or rhonchi. Chest wall is nontender. No use of accessory muscles. GASTROINTESTINAL: Abdomen is nontender, nondistended. Abdomen soft. No obvious pulsatile mass or bruit. No CVA tenderness. Strong femoral pulses bilaterally. Normal bowel sounds in all quadrants. MUSCULOSKELETAL: Patient is moving upper and lower extremities freely. No calf tenderness or edema, no Homans sign. Strong pulses in upper and lower extremities. NEUROLOGICAL: Patient is alert and oriented. Cranial nerves 2-12 are grossly intact. No focal deficits and speech is clear. SKIN: No rash and turgor is normal. Results 06/29/18 03:09 06/29/18 03:09 Cardiac Enzymes 06/28/18 06/28/18 06/29/18 Range/Units 17:20 22:51 03:09 AST 15 14 L (15-37) U/L Troponin I 0.04 0.06 H 0.04 (0.02-0.05) ng/mL Coagulation 06/29/18 Range/Units 03:09 PT 11.4 (9.8-11.6) sec APTT 35.5 H (24.3-30.1) sec CBC 06/28/18 06/29/18 Range/Units 17:20 03:09 WBC 4.6 4.9 (4.0-11.0) th/mm3 RBC 4.15 4.11 (4.00-5.30) mil/mm3 Hgb 12.9 12.7 (11.6-15.3) gm/dL Hct 39.4 38.5 (35.0-46.0) % Plt Count 103 L 101 L (150-450) th/mm3 Neut # (Auto) 3.5 3.5 (1.8-7.7) th/mm3 Lymph # (Auto) 0.6 L 0.9 L (1.0-4.8) th/mm3 [place] # (Auto) 0.4 0.4 (0.0-0.9) th/mm3 Eos # (Auto) 0.1 0.1 (0.0-0.4) th/mm3 Baso # (Auto) 0.0 0.0 (0.0-0.2) th/mm3 Comprehensive Metabolic Panel 06/28/18 06/29/18 Range/Units 17:20 03:09 Sodium 138 142 (136-145) meq/L Potassium 4.2 4.5 (3.5-5.1) meq/L Chloride 102 103 (98-107) meq/L Carbon Dioxide 30.9 29.0 (21.0-32.0) meq/L BUN 35 H 26 H (7-18) mg/dL Creatinine 1.60 H 1.36 H (0.50-1.00) mg/dL Calcium 8.2 L 8.6 (8.5-10.1) mg/dL AST 15 14 L (15-37) U/L ALT 18 15 (10-53) U/L Alkaline Phosphatase 62 61 (45-117) U/L Total Protein 6.7 6.6 (6.4-8.2) g/dL Albumin 3.3 L 3.2 L (3.4-5.0) g/dL Intake and Output 06/28/18 06/29/18 06/29/18 22:59 06:59 14:59 Intake Total 100 / 100 1000 / 1000 Output Total 300 / 300 130 / 130 Balance -300 / -300 -30 / -30 1000 / 1000 Intake: IV 1000 / 1000 NS Inj 1,000 ML @ 84 mls/hr IV. 1000 / 1000 CONT .[id number] [facility] Rx#:[id number] Oral 100 / 100 Output: Urine 300 / 300 130 / 130 Other: # Voids 1 # Incontinent Voids 2 2 Date of Last Bowel Movement 06/28/18 06/28/18 Weight 56 kg 58 kg Weight On Admission 56 kg EKG interpretations - Dysrhythmias Sinus rhythms and dysrhythmias: sinus bradycardia (< 50 bpm) - Blocks, axis, hypertrophy, ST abn AV and intraventricular conduction: right bundle branch block (fixed/ intermittent, complete/incomplete), left anterior fascicular block QRS axis and voltage: left axis deviation (-30 to -90) Assessment and Plan - Assessment (1) Syncope Code(s): R55 - Syncope and collapse Status: Acute (2) Hypertension Code(s): I10 - Essential (primary) hypertension Status: Chronic (3) Atherosclerotic heart disease Code(s): I25.10 - Atherosclerotic heart disease of [place] coronary artery without angina pectoris Status: Chronic (4) Sinus bradycardia Code(s): R00.1 - Bradycardia, unspecified Status: Acute (5) Chronic kidney disease (CKD) Code(s): N18.9 - Chronic kidney disease, unspecified Status: Chronic - Plan Patient's heart rate has increased into the 60s, continue to monitor patient on telemetry. Cardiac enzymes are not trending up and will continue with current cardiac treatment plan. Okay to transfer patient out of the ICU. Will follow patient during hospitalization and follow-up in office after hospital discharge. The patient was seen and evaluated by Dr. Padron who participated in care, management and decision-making. <Jessi Padron - Last Filed: 06/29/18 15:34> History of Present Illness Primary Care Provider: Pete Doan MD Family Provider: Pete Doan MD [facility] - Medical History Medical History: Medical History (Last Reviewed 06/29/18 @ 09:33 by Fabian Larson) Atherosclerotic heart disease CHF (congestive heart failure) COPD (chronic obstructive pulmonary disease) Chronic kidney disease Osteoporosis Medications and Allergies Active Medications: Active Medications Acetaminophen (Tylenol) 650 mg PO Q6H PRN PRN Reason: PAIN 1-10 AND/OR FEVER >101F Al Hydroxide/Mg Hydroxide (Milk Of Magnesia Liq) 30 ml PO Q12H PRN PRN Reason: Mild Constipation Albuterol (Duoneb Neb (Prn)) 1 ampul NEB Q2HR NEB PRN PRN Reason: WHEEZING Albuterol (Duoneb Neb (Paul)) 1 ampul NEB Q4HR NEB [facility] Last Admin: 06/29/18 15:01 Dose: 1 ampul Bisacodyl (Dulcolax Supp) 10 mg RECTAL DAILY PRN PRN Reason: SEVERE CONSITIPATION Chlorhexidine Gluconate (Chlorhexidine 2% Cloth) 3 pack TOPICAL DAILY@0400 [facility] Stop: 07/04/18 03:59 Last Admin: 06/29/18 05:24 Dose: 3 pack Chlorhexidine Gluconate (Chlorhexidine 2% Cloth) 3 pack TOPICAL DAILY@0400 PRN PRN Reason: Extra cloth needed Stop: 07/04/18 03:59 Dextrose (D50w Vial) 50 ml IV.PUSH UNSCH PRN PRN Reason: PER HYPOGLYCEMIA PROTOCOL Famotidine (Pepcid Pf Inj) 10 mg IV.PUSH Q12HR [facility] Last Admin: 06/29/18 08:22 Dose: 10 mg Glucagon (Glucagon Inj) 1 mg OTHER PRN PRN PRN Reason: for Hypoglycemia Protocol Heparin Sodium (Porcine) (Heparin Inj) 5,000 units SQ Q8H [facility] Last Admin: 06/29/18 13:09 Dose: 5,000 units Sodium Chloride (Ns Inj) 1,000 mls @ 84 mls/hr IV.CONT .[id number] [facility] Last Admin: 06/29/18 13:09 Dose: 84 mls/hr Insulin Aspart (Novolog Insulin Correctional Sugar Inj) 0 unit SQ Q6HR [facility]; Protocol Last Admin: 06/29/18 11:51 Dose: Not Given Lactulose (Lactulose Liq) 30 ml PO DAILY PRN PRN Reason: SEVERE CONSITIPATION Levothyroxine Sodium (Synthroid) 25 mcg PO DAILY@0600 [facility] Metoclopramide HCl (Reglan Inj) 5 mg IV.PUSH Q6HR [facility]; Protocol Last Admin: 06/29/18 13:09 Dose: 5 mg Ondansetron HCl (Zofran Inj) 4 mg IV.PUSH Q6H PRN PRN Reason: NAUSEA OR VOMITING Senna/Docusate Sodium (Sheron-Colace) 1 tab PO BID [facility] Last Admin: 06/29/18 08:22 Dose: 1 tab Sennosides (Senokot) 17.2 mg PO Q12H PRN PRN Reason: Moderate Constipation Sodium Chloride (Ns Flush) 2 ml IV.FLUSH BID [facility] Last Admin: 06/29/18 08:22 Dose: 2 ml Sodium Chloride (Ns Flush) 2 ml IV.FLUSH UNSCH PRN PRN Reason: FLUSH AFTER USING IV ACCESS Exam Vital signs: Vital Signs 06/28/18 16:30 06/28/18 16:42 06/28/18 16:46 Temperature 97.4 F L Pulse Rate 50 L 45 L Respiratory Rate 18 16 Blood Pressure 147/62 H 123/64 Pulse Oximetry 96 97 96 06/28/18 18:15 06/28/18 19:45 06/28/18 19:48 Temperature Pulse Rate 49 L 48 L 48 L Respiratory Rate 16 20 Blood Pressure 150/51 H 159/64 H Pulse Oximetry 97 94 L 06/28/18 20:20 06/28/18 20:54 06/28/18 22:10 Temperature Pulse Rate 46 L 46 L Respiratory Rate 18 23 Blood Pressure 132/84 Pulse Oximetry 96 100 06/28/18 22:23 06/28/18 23:00 06/28/18 23:03 Temperature Pulse Rate 45 L 50 L 46 L Respiratory Rate 31 H 27 H Blood Pressure 172/72 H Pulse Oximetry 100 100 06/29/18 00:00 06/29/18 00:01 06/29/18 00:06 Temperature 97.9 F 97.9 F Pulse Rate 63 63 53 L Respiratory Rate 37 H 37 H 34 H Blood Pressure 167/78 H 167/78 H Pulse Oximetry 94 L 94 L 99 06/29/18 01:00 06/29/18 01:01 06/29/18 02:00 Temperature Pulse Rate 47 L 47 L 44 L Respiratory Rate 32 H 41 H 30 H Blood Pressure 126/59 L 136/60 Pulse Oximetry 97 100 100 06/29/18 03:00 06/29/18 03:01 06/29/18 04:00 Temperature Pulse Rate 44 L 45 L 45 L Respiratory Rate 22 32 H 23 Blood Pressure 142/63 H 149/66 H Pulse Oximetry 100 100 100 06/29/18 05:00 06/29/18 06:00 06/29/18 07:00 Temperature 98.2 F Pulse Rate 51 L 53 L 52 L Respiratory Rate 24 20 21 Blood Pressure 161/72 H 154/66 H 165/64 H Pulse Oximetry 100 99 97 06/29/18 07:35 06/29/18 08:00 06/29/18 09:00 Temperature Pulse Rate 52 L 48 L Respiratory Rate 23 22 Blood Pressure 168/70 H Pulse Oximetry 97 95 98 06/29/18 09:01 06/29/18 10:00 06/29/18 11:00 Temperature Pulse Rate 49 L 52 L 44 L Respiratory Rate Blood Pressure 139/60 140/63 Pulse Oximetry 98 100 99 06/29/18 11:22 06/29/18 11:25 06/29/18 12:00 Temperature Pulse Rate 51 L 48 L 51 L Respiratory Rate 16 21 Blood Pressure 108/57 L Pulse Oximetry 99 99 06/29/18 15:01 Temperature Pulse Rate 65 Respiratory Rate 24 Blood Pressure Pulse Oximetry 95 Intake & Output 06/28/18 06/29/18 06/29/18 18:59 06:59 18:59 Intake Total 100 / 100 1000 / 1000 Output Total 430 / 430 Balance -330 / -330 1000 / 1000 Weight 125 lb 10.616 oz 127 lb 13.89 oz Intake: IV 1000 / 1000 NS Inj 1,000 ML @ 84 mls/hr IV. 1000 / 1000 CONT .[id number] [facility] Rx#:[id number] Oral 100 / 100 Output: Urine 430 / 430 Other: # Voids 1 # Incontinent Voids 2 2 Date of Last Bowel Movement 06/28/18 06/28/18 Weight On Admission 123 lb 7.342 oz Results 06/29/18 03:09 06/29/18 03:09 Cardiac Enzymes 06/28/18 06/28/18 06/29/18 Range/Units 17:20 22:51 03:09 AST 15 14 L (15-37) U/L Troponin I 0.04 0.06 H 0.04 (0.02-0.05) ng/mL Coagulation 06/29/18 Range/Units 03:09 PT 11.4 (9.8-11.6) sec APTT 35.5 H (24.3-30.1) sec CBC 06/28/18 06/29/18 Range/Units 17:20 03:09 WBC 4.6 4.9 (4.0-11.0) th/mm3 RBC 4.15 4.11 (4.00-5.30) mil/mm3 Hgb 12.9 12.7 (11.6-15.3) gm/dL Hct 39.4 38.5 (35.0-46.0) % Plt Count 103 L 101 L (150-450) th/mm3 Neut # (Auto) 3.5 3.5 (1.8-7.7) th/mm3 Lymph # (Auto) 0.6 L 0.9 L (1.0-4.8) th/mm3 [place] # (Auto) 0.4 0.4 (0.0-0.9) th/mm3 Eos # (Auto) 0.1 0.1 (0.0-0.4) th/mm3 Baso # (Auto) 0.0 0.0 (0.0-0.2) th/mm3 Comprehensive Metabolic Panel 06/28/18 06/29/18 Range/Units 17:20 03:09 Sodium 138 142 (136-145) meq/L Potassium 4.2 4.5 (3.5-5.1) meq/L Chloride 102 103 (98-107) meq/L Carbon Dioxide 30.9 29.0 (21.0-32.0) meq/L BUN 35 H 26 H (7-18) mg/dL Creatinine 1.60 H 1.36 H (0.50-1.00) mg/dL Calcium 8.2 L 8.6 (8.5-10.1) mg/dL AST 15 14 L (15-37) U/L ALT 18 15 (10-53) U/L Alkaline Phosphatase 62 61 (45-117) U/L Total Protein 6.7 6.6 (6.4-8.2) g/dL Albumin 3.3 L 3.2 L (3.4-5.0) g/dL Intake and Output 06/29/18 06/29/18 06/29/18 06:59 14:59 22:59 Intake Total 100 / 100 1000 / 1000 Output Total 130 / 130 Balance -30 / -30 1000 / 1000 Intake: IV 1000 / 1000 NS Inj 1,000 ML @ 84 mls/hr IV. 1000 / 1000 CONT .[id number] [facility] Rx#:[id number] Oral 100 / 100 Output: Urine 130 / 130 Other: # Voids 1 # Incontinent Voids 2 2 Date of Last Bowel Movement 06/28/18 06/28/18 Weight 127 lb 13.89 oz Assessment and Plan - Assessment (1) Syncope Code(s): R55 - Syncope and collapse Status: Acute (2) Hypertension Code(s): I10 - Essential (primary) hypertension Status: Chronic (3) Atherosclerotic heart disease Code(s): I25.10 - Atherosclerotic heart disease of [place] coronary artery without angina pectoris Status: Chronic (4) Sinus bradycardia Code(s): R00.1 - Bradycardia, unspecified Status: Acute (5) Chronic kidney disease (CKD) Code(s): N18.9 - Chronic kidney disease, unspecified Status: Chronic - Attending Attestation Patient seen and examined. I reviewed and agree with the evaluation and plan as presented. Continue monitoring. HR now in the 60's. Transfer out of ICU. Increase activity. Will schedule f/u in our office after discharge and place outpatient telemetry at that time as well if the reason for syncope still unclear.
--- NOTE | 2018-06-29 14:29 | ECHRPT ---
Indication: CVA/TIA CONCLUSIONS The left ventricular systolic function is low normal with an estimated ejection fraction in the rang e of 50- 55%. Normal left ventricular size. Wall thickness is measured at the upper limits of normal. No regional wall motion abnormalities are present. mild mitral valve regurgitation. Mitral annular calcification is present. Aortic valve sclerosis is present. Mild to moderate aortic valve regurgitation. There is mild tricuspid valve regurgitation. The estimated pulmonary arterial pressure is 36.8 mmHg. BP: / HR: Rhythm: Sinus MEASUREMENTS (Male / Female) Normal Values Technical Quality:Fair 2D ECHO LV Diastolic Diameter PLAX 4.7 cm 4.2 - 5.9 / 3.9 - 5.3 cm LV Systolic Diameter PLAX 3.7 cm IVS Diastolic Thickness 1.2 cm 0.6 - 1.0 / 0.6 - 0.9 cm LVPW Diastolic Thickness 1.2 cm 0.6 - 1.0 / 0.6 - 0.9 cm LV Relative Wall Thickness 0.5 LVOT Diameter 2.1 cm LA Systolic Diameter LX 2.6 cm 3.0 - 4.0 / 2.7 - 3.8 cm LV Ejection Fraction MOD 4C 52.5 % LV Ejection Fraction 4C AL 54.1 % M-MODE Aortic Root Diameter MM 2.7 cm AV Cusp Separation MM 1.9 cm DOPPLER AV Peak Velocity 190.0 cm/s AV Peak Gradient 14.4 mmHg AI Peak Velocity 417.7 cm/s AI Peak Gradient 69.8 mmHg AI Pressure Half Time 466.3 ms LVOT Peak Velocity 117.0 cm/s LVOT Peak Gradient 5.5 mmHg AV Area Cont Eq pk 2.1 cm MV Area PHT 2.2 cm Mitral E Point Velocity 64.2 cm/s Mitral A Point Velocity 81.9 cm/s Mitral E to A Ratio 0.8 LV E' Lateral Velocity 3.2 cm/s Mitral E to LV E' Lateral Ratio 19.9 LV E' Septal Velocity 2.9 cm/s Mitral E to LV E' Septal Ratio 22.0 TR Peak Velocity 259.0 cm/s TR Peak Gradient 26.8 mmHg Right Atrial Pressure 10.0 mmHg Pulmonary Artery Systolic Pressu 36.8 mmHg Right Ventricular Systolic Press 36.8 mmHg PV Peak Velocity 95.0 cm/s PV Peak Gradient 3.6 mmHg FINDINGS LEFT VENTRICLE The left ventricular systolic function is low normal with an estimated ejection fraction in the rang e of 50- 55%. Normal left ventricular size. Wall thickness is measured at the upper limits of normal. No regional wall motion abnormalities are present. RIGHT VENTRICLE Normal right ventricular size and systolic function. LEFT ATRIUM The left atrial size is normal. RIGHT ATRIUM The right atrial size is normal. ATRIAL SEPTUM Normal atrial septal thickness without atrial level shunting by limited color doppler interrogation. AORTA The aortic root and proximal ascending aorta are normal in size on limited imaging. MITRAL VALVE Structurally normal mitral valve. Trace mitral valve regurgitation. Mitral annular calcification is present. AORTIC VALVE Trileaflet aortic valve. Aortic valve sclerosis is present. Moderate aortic valve regurgitation. TRICUSPID VALVE Structurally normal tricuspid valve. There is mild tricuspid valve regurgitation. The estimated pulmonary arterial pressure is 36.8 mmHg. PULMONARY VALVE No pulmonary valve regurgitation or stenosis. VESSELS The inferior vena cava is normal in size. PERICARDIUM No pericardial effusion. Khurram Milner MD, FACC, [facility] (Electronically Signed) Final Date:29 June 2018 14:28
--- NOTE | 2018-06-29 22:13 | ECG ---
Date Performed: 06/29/2018 Time Performed: 03:37:46 PTAGE: 87 years EKG: Sinus bradycardia with borderline 1st degree A-V block Left axis deviation RBBB with left a nterior fascicular block Anterior infarct - age undetermined Left ventricular hypertrophy Lateral ST- T changes may be due to hypertrophy and/or ischemia Abnormal ECG PREVIOUS TRACING : 06/28/2018 22.07 Since the previous tracing, no significant change noted DOCTOR: Larry Amador Interpretating Date/Time 06/29/2018 22:10:40
--- NOTE | 2018-06-29 22:19 | ECG ---
Date Performed: 06/28/2018 Time Performed: 22:07:52 PTAGE: 87 years EKG: SINUS BRADYCARDIA WITH FIRST DEGREE AV BLOCK MARKED LEFT AXIS DEVIATION RIGHT BUNDLE BRANCH BLOCK LEFT VENTRICULAR HYPERTROPHY AND ST-T CHANGE POSSIBLE ANTEROSEPTAL MYOCARDIAL INFARCTION , OF INDETERMINATE AGE ABNORMAL ECG PREVIOUS TRACING : 06/28/2018 17.07 Since the previous tracing, no significant change noted DOCTOR: Larry Amador Interpretating Date/Time 06/29/2018 22:18:32
--- NOTE | 2018-06-29 22:35 | ECG ---
Date Performed: 06/28/2018 Time Performed: 17:07:36 PTAGE: 87 years EKG: SINUS BRADYCARDIA MARKED LEFT AXIS DEVIATION RIGHT BUNDLE BRANCH BLOCK LEFT VENTRICULAR HYP ERTROPHY AND ST-T CHANGE POSSIBLE ANTEROSEPTAL MYOCARDIAL INFARCTION ABNORMAL ECG NO PREVIOUS TRACING DOCTOR: Larry Amador Interpretating Date/Time 06/29/2018 22:30:49
[2018-06-30 03:47] LABS: Baso # (Auto) 0.1 th/mm3 (0.0-0.2); Baso % (Auto) 1.1 % (0.0-2.0); Hematocrit 39.1 % (35.0-46.0); Lymph # (Auto) 0.5 th/mm3 (1.0-4.8); Lymph % (Auto) 11.6 % (9.0-44.0); Mean Corpuscular HGB Conc 33.3 % (32.0-36.0); Mean Corpuscular Hemoglobin 31.4 pg (27.0-34.0); Mean Corpuscular Volume 94.3 fL (80.0-100.0); Mean Platelet Volume 8.2 fL (7.0-11.0); Mono # (Auto) 0.3 th/mm3 (0.0-0.9); Mono % (Auto) 6.4 % (0.0-8.0); Neut # (Auto) 3.8 th/mm3 (1.8-7.7); Neut % (Auto) 79.9 % (16.0-70.0); Platelet Count 110 th/mm3 (150-450); Red Blood Count 4.15 mil/mm3 (4.00-5.30); Red Cell Distribution Width 13.8 % (11.6-17.2); White Blood Count 4.7 th/mm3 (4.0-11.0)
[2018-06-30 03:59] LABS: Albumin 3.6 g/dL (3.4-5.0); Anion Gap 9 meq/L (5-15); Aspartate Aminotransferase 13 U/L (15-37); Blood Urea Nitrogen 24 mg/dL (7-18); Calcium 8.9 mg/dL (8.5-10.1); Carbon Dioxide 29.8 meq/L (21.0-32.0); Chloride 105 meq/L (98-107); Glomerular Filtration Rate 35 mL/min (>89); Glucose,Random 90 mg/dL (74-106); Magnesium 2.3 mg/dL (1.5-2.5); Sodium 144 meq/L (136-145)
[2018-06-30 04:00] LABS: Alanine Aminotransferase 16 U/L (10-53)
[2018-06-30 04:02] LABS: Alkaline Phosphatase 64 U/L (45-117); Phosphorus 3.6 mg/dL (2.5-4.9); Total Protein 7.1 g/dL (6.4-8.2)
[2018-06-30] MEDS: Chlorhexidine Gluconate 2% 1 Pack (2 Cloths) TOPICAL SCH (05:57)
[2018-06-30] MEDS: Heparin - SQ 10,000 UNITS/ML Vial SQ SCH ×2 (05:58→14:07)
[2018-06-30] MEDS: Senna/Docusate Sodium 8.6/50 MG Tablet PO SCH ×2 (08:35→20:27)
[2018-06-30] MEDS: Famotidine PF Inj 20 MG/2 ML Vial IV.PUSH SCH (08:36)
[2018-06-30] MEDS: Insulin NovoLOG Aspart Correctional Sugar Inj SQ SCH ×3 (08:36→17:51)
--- NOTE | 2018-06-30 12:10 | P.PNCA ---
<Alivia Shen N - Last Filed: 06/30/18 11:56> Subjective Interval history: Patient currently sitting up in bed eating breakfast. Patient denies any chest pain, pressure, dizziness, palpitations or shortness of breath. Patient is still forgetful and unable to tell me what occurred prior to her syncopal episode. Physical Exam Vital signs: Vital Signs 06/29/18 12:00 06/29/18 13:00 06/29/18 13:09 Temperature 98.5 F Pulse Rate 57 L 55 L 67 Respiratory Rate 22 Blood Pressure 104/60 Pulse Oximetry 99 100 98 06/29/18 13:59 06/29/18 14:00 06/29/18 14:01 Temperature Pulse Rate 57 L 59 L 62 Respiratory Rate Blood Pressure 94/51 L 91/47 L 96/55 L Pulse Oximetry 100 99 100 06/29/18 14:02 06/29/18 15:00 06/29/18 15:01 Temperature Pulse Rate 62 57 L 55 L Respiratory Rate 22 20 Blood Pressure 93/49 L 117/68 Pulse Oximetry 100 99 99 06/29/18 16:00 06/29/18 16:01 06/29/18 17:00 Temperature 97.9 F Pulse Rate 52 L 60 64 Respiratory Rate 24 Blood Pressure 99/45 L 94/49 L Pulse Oximetry 99 99 98 06/29/18 20:00 06/29/18 20:30 06/30/18 00:00 Temperature 97.5 F L 97.9 F Pulse Rate 51 L 53 L 58 L Respiratory Rate 20 22 Blood Pressure 110/52 L 140/64 Pulse Oximetry 100 100 06/30/18 03:54 06/30/18 04:00 06/30/18 07:45 Temperature 97.9 F Pulse Rate 65 60 Respiratory Rate 17 20 Blood Pressure Pulse Oximetry 92 L 06/30/18 08:00 06/30/18 11:42 Temperature 98.0 F Pulse Rate 64 80 Respiratory Rate 23 22 Blood Pressure 162/72 H Pulse Oximetry 100 Intake & Output 06/29/1818 06/30/18 18:59 06:59 18:59 Intake Total 1000 / 1000 0 / 0 240 / 240 Output Total 0 / 0 800 / 800 Balance 1000 / 1000 0 / 0 -560 / -560 Weight 58 kg Intake: IV 1000 / 1000 NS Inj 1,000 ML @ 84 mls/hr IV. 1000 / 1000 CONT .[id number] [facility] Rx#:[id number] Oral 0 / 0 240 / 240 Output: Urine 0 / 0 800 / 800 Other: # Voids 1 8 # Incontinent Voids 2 2 7 Date of Last Bowel Movement 06/29/18 06/29/18 06/29/18 # Bowel Movements 1 1 Narrative: GENERAL: Patient in no apparent distress. Patient speaks in clear complete sentences. Patient is pleasant. HEENT: Head is atraumatic and normocephalic. Neck is supple without lymphadenopathy and trachea is midline. No JVD or carotid bruits. CARDIOVASCULAR: Regular rate and rhythm without murmurs, gallops, or rubs. RESPIRATORY: Clear to auscultation. Breath sounds equal bilaterally. No wheezes , rales, or rhonchi. Chest wall is nontender. No use of accessory muscles. GASTROINTESTINAL: Abdomen is nontender, nondistended. Abdomen soft. No obvious pulsatile mass or bruit. No CVA tenderness. Strong femoral pulses bilaterally. Normal bowel sounds in all quadrants. MUSCULOSKELETAL: Patient is moving upper and lower extremities freely. No calf tenderness or edema, no Homans sign. Strong pulses in upper and lower extremities. NEUROLOGICAL: Patient is alert, oriented with mild confusion. Cranial nerves 2- 12 are grossly intact. No focal deficits and speech is clear. SKIN: No rash and turgor is normal. - Urinary Catheter Management Straight Cath placed during this visit: no Reason for continuing: Not indwelling catheter Assessment and Plan - Assessment (1) Syncope Code(s): R55 - Syncope and collapse Status: Acute (2) Hypertension Code(s): I10 - Essential (primary) hypertension Status: Chronic (3) Atherosclerotic heart disease Code(s): I25.10 - Atherosclerotic heart disease of [place] coronary artery without angina pectoris Status: Chronic (4) Sinus bradycardia Code(s): R00.1 - Bradycardia, unspecified Status: Acute (5) Chronic kidney disease (CKD) Code(s): N18.9 - Chronic kidney disease, unspecified Status: Chronic - Plan Vital signs stable. Continue to monitor patient on telemetry. Continue with current cardiac treatment plan. Okay to transfer patient out of the ICU. Will follow patient during hospitalization and follow-up in office after hospital discharge. The patient was seen and evaluated by Dr. Padron who participated in care, management and decision-making. <Jessi Padron - Last Filed: 06/30/18 14:39> Physical Exam Vital signs: Vital Signs 06/29/18 15:00 06/29/18 15:01 06/29/18 16:00 Temperature Pulse Rate 57 L 55 L 52 L Respiratory Rate 22 20 Blood Pressure 117/68 Pulse Oximetry 99 99 99 06/29/18 16:01 06/29/18 17:00 06/29/18 20:00 Temperature 97.9 F 97.5 F L Pulse Rate 60 64 51 L Respiratory Rate 24 20 Blood Pressure 99/45 L 94/49 L 110/52 L Pulse Oximetry 99 98 100 06/29/18 20:30 06/30/18 00:00 06/30/18 03:54 Temperature 97.9 F Pulse Rate 53 L 58 L 65 Respiratory Rate 22 17 Blood Pressure 140/64 Pulse Oximetry 100 92 L 06/30/18 04:00 06/30/18 07:45 06/30/18 08:00 Temperature 97.9 F 98.0 F Pulse Rate 60 64 Respiratory Rate 20 23 Blood Pressure 162/72 H Pulse Oximetry 100 06/30/18 11:42 06/30/18 12:00 Temperature 98.2 F Pulse Rate 80 63 Respiratory Rate 22 22 Blood Pressure 123/56 L Pulse Oximetry 99 Intake & Output 06/29/18 06/30/18 06/30/18 18:59 06:59 18:59 Intake Total 1000 / 1000 0 / 0 240 / 240 Output Total 0 / 0 800 / 800 Balance 1000 / 1000 0 / 0 -560 / -560 Weight 127 lb 13.89 oz Intake: IV 1000 / 1000 NS Inj 1,000 ML @ 84 mls/hr IV. 1000 / 1000 CONT .[id number] [facility] Rx#:[id number] Oral 0 / 0 240 / 240 Output: Urine 0 / 0 800 / 800 Other: # Voids 1 8 # Incontinent Voids 2 2 7 Date of Last Bowel Movement 06/29/18 06/29/18 06/29/18 # Bowel Movements 1 1 - Urinary Catheter Management Straight Cath placed during this visit: no Assessment and Plan - Assessment (1) Syncope Code(s): R55 - Syncope and collapse Status: Acute (2) Hypertension Code(s): I10 - Essential (primary) hypertension Status: Chronic (3) Atherosclerotic heart disease Code(s): I25.10 - Atherosclerotic heart disease of [place] coronary artery without angina pectoris Status: Chronic (4) Sinus bradycardia Code(s): R00.1 - Bradycardia, unspecified Status: Acute (5) Chronic kidney disease (CKD) Code(s): N18.9 - Chronic kidney disease, unspecified Status: Chronic - Attending Attestation Patient seen and examined. I reviewed and agree with the evaluation and plan as presented. Tele with HR in the 60's. Increase activity. Will schedule outpt f/u in our office after discharge.
--- NOTE | 2018-06-30 14:50 | US ---
EXAM DATE: 06/30/2018 2:41 PM EDT AGE/SEX: 87 years / Female INDICATIONS: Syncope. CLINICAL DATA: This is the patient's initial encounter. Patient reports that signs and symptoms have been present for 1 day and indicates a pain score of 0/10. MEDICAL/SURGICAL HISTORY: Chronic obstructive pulmonary disease. Atherosclerotic heart disease. Congestive heart failure. Chronic kidney disease. Osteoporosis. None. COMPARISON: No prior exams available for comparison. VELOCITY PARAMETERS: ICA/CCA Ratio: Right 0.9 , Left 1.0 ICA: Right 69.1 cm/sec, Left 95.2 cm/sec CCA: Right 79.0 cm/sec, Left 93.0 cm/sec ECA: Right 65.8 cm/sec, Left 62.8 cm/sec Vertebral: Right 91.9 cm/sec antegrade, Left 56.7 cm/sec antegrade FINDINGS: Right Carotid: Mild arteriosclerotic plaque is visualized.The waveforms are within normal limits. Left Carotid: Mild arteriosclerotic plaque is visualized. The waveforms are within normal limits. Other: None. CONCLUSION: No hemodynamically significant stenosis in either carotid artery. Electronically signed by: Krzysztof Wilson MD 06/30/2018 2:48 PM EDT
--- NOTE | 2018-06-30 18:28 | P.PN ---
Subjective Interval history: awake and alert, daughter at bedside no complains of pain or dizziness sitting at the side of the bed Physical Exam Vital signs: Vital Signs 06/29/18 20:00 06/29/18 20:30 06/30/18 00:00 Temperature 97.5 F L 97.9 F Pulse Rate 51 L 53 L 58 L Respiratory Rate 20 22 Blood Pressure 110/52 L 140/64 Pulse Oximetry 100 100 06/30/18 03:54 06/30/18 04:00 06/30/18 07:45 Temperature 97.9 F Pulse Rate 65 60 Respiratory Rate 17 20 Blood Pressure Pulse Oximetry 92 L 06/30/18 08:00 06/30/18 11:42 06/30/18 12:00 Temperature 98.0 F 98.2 F Pulse Rate 64 80 63 Respiratory Rate 23 22 22 Blood Pressure 162/72 H 123/56 L Pulse Oximetry 100 99 06/30/18 16:00 06/30/18 16:17 Temperature 98.1 F Pulse Rate 65 62 Respiratory Rate 28 H 18 Blood Pressure 128/63 Pulse Oximetry 100 Intake & Output 06/29/18 06/30/18 06/30/18 18:59 06:59 18:59 Intake Total 1000 / 1000 0 / 0 240 / 240 Output Total 0 / 0 800 / 800 Balance 1000 / 1000 0 / 0 -560 / -560 Weight 58 kg Intake: IV 1000 / 1000 NS Inj 1,000 ML @ 84 mls/hr IV. 1000 / 1000 CONT .[id number] [facility] Rx#:[id number] Oral 0 / 0 240 / 240 Output: Urine 0 / 0 800 / 800 Other: # Voids 1 8 # Incontinent Voids 2 2 7 Date of Last Bowel Movement 06/29/18 06/29/18 06/29/18 # Bowel Movements 1 1 Narrative: Patient in no apparent distress. Patient speaks in clear complete sentences. Patient is pleasant. skin with multiple ecchymoses HEENT: Head is atraumatic and normocephalic. Neck is supple No JVD or carotid bruits. CARDIOVASCULAR: Regular rate and rhythm without murmurs, gallops, or rubs. RESPIRATORY: Clear to auscultation. Breath sounds equal bilaterally. No wheezes , rales, or rhonchi. Chest wall is nontender. No use of accessory muscles. GASTROINTESTINAL: Abdomen is nontender, nondistended. Abdomen soft. No obvious pulsatile mass or bruit. No CVA tenderness. Strong femoral pulses bilaterally. Normal bowel sounds in all quadrants. MUSCULOSKELETAL: Patient is moving upper and lower extremities freely. No calf tenderness or edema, no Homans sign. Strong pulses in upper and lower extremities. Right leg- with large superficial wound- - pressure dressing applied NEUROLOGICAL: Patient is alert, oriented x 3, ff all commands Cranial nerves 2- 12 are grossly intact. No focal deficits and speech is clear. SKIN: No rash and turgor is normal. - Urinary Catheter Management Straight Cath placed during this visit: no Reason for continuing: Not indwelling catheter Results - Labs CBC & Chem 7: 06/30/18 02:57 06/30/18 02:57 Laboratory Results - last 24 hr 06/29/18 06/30/18 06/30/18 23:18 02:57 02:57 WBC 4.7 RBC 4.15 Hgb 13.0 Hct 39.1 MCV 94.3 MCH 31.4 MCHC 33.3 RDW 13.8 Plt Count 110 L MPV 8.2 Neut % (Auto) 79.9 H Lymph % (Auto) 11.6 [place] % (Auto) 6.4 Eos % (Auto) 1.0 Baso % (Auto) 1.1 Neut # (Auto) 3.8 Lymph # (Auto) 0.5 L [place] # (Auto) 0.3 Eos # (Auto) 0.0 Baso # (Auto) 0.1 WBC Differential . Differential Comment Auto diff final Sodium 144 Potassium 4.0 Chloride 105 Carbon Dioxide 29.8 Anion Gap 9 BUN 24 H Creatinine 1.41 H Estimated GFR 35 L POC Glucose 106 Random Glucose 90 Calcium 8.9 Phosphorus 3.6 Magnesium 2.3 Total Bilirubin 0.4 AST 13 L ALT 16 Alkaline Phosphatase 64 Total Protein 7.1 Albumin 3.6 06/30/18 06/30/18 06/30/18 07:21 11:47 17:26 WBC RBC Hgb Hct MCV MCH MCHC RDW Plt Count MPV Neut % (Auto) Lymph % (Auto) [place] % (Auto) Eos % (Auto) Baso % (Auto) Neut # (Auto) Lymph # (Auto) [place] # (Auto) Eos # (Auto) Baso # (Auto) WBC Differential Differential Comment Sodium Potassium Chloride Carbon Dioxide Anion Gap BUN Creatinine Estimated GFR POC Glucose 83 133 H 94 Random Glucose Calcium Phosphorus Magnesium Total Bilirubin AST ALT Alkaline Phosphatase Total Protein Albumin Microbiology 06/28/18 17:20 Clean Catch Urine Urine Culture - Final Escherichia coli - Imaging Impressions Carotid Doppler Study 06/30/18 00:00 CONCLUSION: No hemodynamically significant stenosis in either carotid artery. Assessment and Plan - Plan 87 years old female Syncope likely cardiogenic - sinus bradycardia on admission -continue telemetry- sinus- rate 80s - PT eval - echo, carotid US unremarkable - Head CT negative History of CHF - cardiology ff- Dr. Padron COPD- no distress continue with 02 to keep sats > 92% Bronchodilators, CXR: Minimal basilar atelectasis Incetive spirometery hourly CHIARA likely with underlying CKD FF BMP- creatinine improving GI: On PO diet Pepcid HYpothyroidism TSH: 5.2, FT3: low 1.63, FT4: 1.26 started on Synthroid 25mcg daily OP ff up TSH in 6-8 weeks Thrombocytopenia - no old labs for comparison recheck in am Likely starting dementia- daughter concerned about increasing forgetfulness during this admission get cognitive evaluation DVT GI prophylaxis -Teds SCDs -Subcu heparin- hold with low platelet -Pepcid DC -change to PPI po transfer to medical floor
[2018-07-01] MEDS: Insulin NovoLOG Aspart Correctional Sugar Inj SQ SCH ×4 (00:17→20:11)
[2018-07-01] MEDS: Chlorhexidine Gluconate 2% 1 Pack (2 Cloths) TOPICAL SCH (04:44)
--- NOTE | 2018-07-01 08:08 | P.PN ---
Subjective Interval history: telemetry- in SR rate 50s when asleep up to low 60s when awake with PACs awake and alert denies any pain Physical Exam Vital signs: Vital Signs 06/30/18 11:42 06/30/18 12:00 06/30/18 16:00 Temperature 98.2 F 98.1 F Pulse Rate 80 63 65 Respiratory Rate 22 22 28 H Blood Pressure 123/56 L 128/63 Pulse Oximetry 99 100 06/30/18 16:17 06/30/18 19:39 06/30/18 20:00 Temperature 98.5 F Pulse Rate 62 71 80 Respiratory Rate 18 18 24 Blood Pressure 125/74 Pulse Oximetry 100 98 07/01/18 00:00 07/01/18 00:41 07/01/18 04:00 Temperature 97.9 F Pulse Rate 64 60 Respiratory Rate 21 18 Blood Pressure 123/58 L 171/71 H Pulse Oximetry 100 100 100 Intake & Output 06/30/18 07/01/18 07/01/18 18:59 06:59 18:59 Intake Total 240 / 240 960 / 960 Output Total 800 / 800 Balance -560 / -560 960 / 960 Weight 57 kg Intake: Oral 240 / 240 960 / 960 Output: Urine 800 / 800 Other: # Voids 8 4 # Incontinent Voids 7 Date of Last Bowel Movement 06/29/18 # Bowel Movements 0 Narrative: Patient in no apparent distress. Patient speaks in clear complete sentences. Patient is pleasant. skin with multiple ecchymoses HEENT: Head is atraumatic and normocephalic. Neck is supple No JVD or carotid bruits. CARDIOVASCULAR: Regular rate and rhythm without murmurs with occasional PACs RESPIRATORY: Clear to auscultation. Breath sounds equal bilaterally. No wheezes , rales, or rhonchi. Chest wall is nontender. No use of accessory muscles. GASTROINTESTINAL: Abdomen is nontender, nondistended. Abdomen soft. No obvious pulsatile mass or bruit. No CVA tenderness. Strong femoral pulses bilaterally. Normal bowel sounds in all quadrants. MUSCULOSKELETAL: Patient is moving upper and lower extremities freely. No calf tenderness or edema, no Homans sign. Strong pulses in upper and lower extremities. Right leg- with large superficial wound- - pressure dressing applied NEUROLOGICAL: Patient is alert, oriented x 3, ff all commands Cranial nerves 2- 12 are grossly intact. No focal deficits and speech is clear. SKIN: No rash and turgor is normal. - Urinary Catheter Management Straight Cath placed during this visit: no Reason for continuing: Not indwelling catheter Results - Labs CBC & Chem 7: 06/30/18 02:57 07/01/18 04:57 Laboratory Results - last 24 hr 06/30/18 06/30/18 06/30/18 11:47 17:26 20:25 POC Glucose 133 H 94 112 H 07/01/18 06:49 POC Glucose 80 Microbiology 06/28/18 17:20 Clean Catch Urine Urine Culture - Final Escherichia coli - Imaging Impressions Carotid Doppler Study 06/30/18 00:00 CONCLUSION: No hemodynamically significant stenosis in either carotid artery. Assessment and Plan - Plan 87 years old female Syncope likely cardiogenic - sinus bradycardia on admission -continue telemetry-overnight srate 50-60s - PT eval - echo, carotid US unremarkable - Head CT negative - cardiology ff History of CHF - cardiology ff- Dr. Padron COPD- no distress continue with 02 to keep sats > 92% Bronchodilators, CXR: Minimal basilar atelectasis Incetive spirometery hourly CHIARA likely with underlying CKD FF BMP- creatinine improving GI: On PO diet Pepcid HYpothyroidism TSH: 5.2, FT3: low 1.63, FT4: 1.26 started on Synthroid 25mcg daily OP ff up TSH in 6-8 weeks Thrombocytopenia - no old labs for comparison recheck- pending Likely starting dementia- daughter concerned about increasing forgetfulness during this admission get cognitive evaluation- consulted speech therapy DVT GI prophylaxis -Teds SCDs -Subcu heparin- hold with low platelet -Pepcid DC -change to PPI po transfer to medical floor
[2018-07-01 08:14] LABS: Calcium 9.1 mg/dL (8.5-10.1); Carbon Dioxide 28.6 meq/L (21.0-32.0); Potassium 4.3 meq/L (3.5-5.1)
[2018-07-01] MEDS: Senna/Docusate Sodium 8.6/50 MG Tablet PO SCH ×2 (09:21→20:11)
--- NOTE | 2018-07-01 13:36 | P.PNCA ---
<Alivia Shen N - Last Filed: 07/01/18 13:59> Subjective Interval history: Patient denies any chest pain, pressure, palpitation, dizziness, or shortness of breath. Patient is very drowsy today due to lack of sleep last night. Daughter is at bedside and is concerned about her lack of sleep and increase in confusion. Physical Exam Vital signs: Vital Signs 06/30/18 16:00 06/30/18 16:17 06/30/18 19:39 Temperature 98.1 F Pulse Rate 65 62 71 Respiratory Rate 28 H 18 18 Blood Pressure 128/63 Pulse Oximetry 100 100 06/30/18 20:00 07/01/18 00:00 07/01/18 00:41 Temperature 98.5 F Pulse Rate 80 64 Respiratory Rate 24 21 Blood Pressure 125/74 123/58 L Pulse Oximetry 98 100 100 07/01/18 04:00 07/01/18 08:00 07/01/18 08:28 Temperature 97.9 F Pulse Rate 60 68 56 L Respiratory Rate 18 18 Blood Pressure 171/71 H Pulse Oximetry 100 97 07/01/18 12:09 Temperature Pulse Rate 63 Respiratory Rate 16 Blood Pressure Pulse Oximetry Intake & Output 06/30/18 07/01/18 07/01/18 18:59 06:59 18:59 Intake Total 240 / 240 960 / 960 Output Total 800 / 800 Balance -560 / -560 960 / 960 Weight 57 kg Intake: Oral 240 / 240 960 / 960 Output: Urine 800 / 800 Other: # Voids 8 4 # Incontinent Voids 7 Date of Last Bowel Movement 06/29/18 06/29/18 # Bowel Movements 0 Narrative: GENERAL: Patient in no apparent distress. Patient speaks in clear complete sentences. Patient is pleasant. HEENT: Head is atraumatic and normocephalic. Neck is supple without lymphadenopathy and trachea is midline. No JVD or carotid bruits. CARDIOVASCULAR: Regular rate and rhythm without murmurs, gallops, or rubs. RESPIRATORY: Clear to auscultation. Breath sounds equal bilaterally. No wheezes , rales, or rhonchi. Chest wall is nontender. No use of accessory muscles. GASTROINTESTINAL: Abdomen is nontender, nondistended. Abdomen soft. No obvious pulsatile mass or bruit. No CVA tenderness. Strong femoral pulses bilaterally. Normal bowel sounds in all quadrants. MUSCULOSKELETAL: Patient is moving upper and lower extremities freely. No calf tenderness or edema, no Homans sign. Strong pulses in upper and lower extremities. NEUROLOGICAL: Patient is drowsy due to lack of sleep last night. Cranial nerves 2-12 are grossly intact. No focal deficits and speech is clear. SKIN: No rash and turgor is normal. - Urinary Catheter Management Straight Cath placed during this visit: no Reason for continuing: Not indwelling catheter Assessment and Plan - Assessment (1) Syncope Code(s): R55 - Syncope and collapse Status: Acute (2) Hypertension Code(s): I10 - Essential (primary) hypertension Status: Chronic (3) Atherosclerotic heart disease Code(s): I25.10 - Atherosclerotic heart disease of [place] coronary artery without angina pectoris Status: Chronic (4) Sinus bradycardia Code(s): R00.1 - Bradycardia, unspecified Status: Acute (5) Chronic kidney disease (CKD) Code(s): N18.9 - Chronic kidney disease, unspecified Status: Chronic - Plan Continue to monitor patient on telemetry. Continue with current cardiac treatment plan. Increase activity. Okay to transfer patient out of ICU. Will follow patient during hospitalization and follow-up in office after hospital discharge. The patient was seen and evaluated by Dr. Padron who participated in care, management and decision-making. <Jessi Padron - Last Filed: 07/01/18 14:35> Physical Exam Vital signs: Vital Signs 06/30/18 16:00 06/30/18 16:17 06/30/18 19:39 Temperature 98.1 F Pulse Rate 65 62 71 Respiratory Rate 28 H 18 18 Blood Pressure 128/63 Pulse Oximetry 100 100 06/30/18 20:00 07/01/18 00:00 07/01/18 00:41 Temperature 98.5 F Pulse Rate 80 64 Respiratory Rate 24 21 Blood Pressure 125/74 123/58 L Pulse Oximetry 98 100 100 07/01/18 04:00 07/01/18 08:00 07/01/18 08:28 Temperature 97.9 F Pulse Rate 60 68 56 L Respiratory Rate 18 18 Blood Pressure 171/71 H Pulse Oximetry 100 97 07/01/18 12:09 Temperature Pulse Rate 63 Respiratory Rate 16 Blood Pressure Pulse Oximetry Intake & Output 06/30/18 07/01/1818 18:59 06:59 18:59 Intake Total 240 / 240 960 / 960 Output Total 800 / 800 Balance -560 / -560 960 / 960 Weight 125 lb 10.616 oz Intake: Oral 240 / 240 960 / 960 Output: Urine 800 / 800 Other: # Voids 8 4 # Incontinent Voids 7 Date of Last Bowel Movement 06/29/18 06/29/18 # Bowel Movements 0 - Urinary Catheter Management Straight Cath placed during this visit: no Assessment and Plan - Assessment (1) Syncope Code(s): R55 - Syncope and collapse Status: Acute (2) Hypertension Code(s): I10 - Essential (primary) hypertension Status: Chronic (3) Atherosclerotic heart disease Code(s): I25.10 - Atherosclerotic heart disease of [place] coronary artery without angina pectoris Status: Chronic (4) Sinus bradycardia Code(s): R00.1 - Bradycardia, unspecified Status: Acute (5) Chronic kidney disease (CKD) Code(s): N18.9 - Chronic kidney disease, unspecified Status: Chronic - Attending Attestation Patient seen and examined. I reviewed and agree with the evaluation and plan as presented. HR remains stable in the 60's. Transfer out of ICU. Increase activity , PT.
[2018-07-02] MEDS: Insulin NovoLOG Aspart Correctional Sugar Inj SQ SCH ×4 (00:31→20:27)
[2018-07-02] MEDS: Chlorhexidine Gluconate 2% 1 Pack (2 Cloths) TOPICAL SCH (05:46)
--- NOTE | 2018-07-02 08:04 | P.PN ---
Subjective Interval history: awake and alert got a little grumpy when wakened up per patietn- states she ambualtes/uses a walker for safety Physical Exam Vital signs: Vital Signs 07/01/18 08:28 07/01/18 09:00 07/01/18 10:00 Temperature Pulse Rate 56 L 53 L 96 H Respiratory Rate 18 Blood Pressure Pulse Oximetry 97 100 07/01/18 11:00 07/01/18 12:00 07/01/18 12:01 Temperature Pulse Rate 69 74 66 Respiratory Rate 22 Blood Pressure 117/52 L Pulse Oximetry 98 100 100 07/01/18 12:09 07/01/18 13:00 07/01/18 14:00 Temperature Pulse Rate 63 65 65 Respiratory Rate 16 Blood Pressure Pulse Oximetry 98 100 07/01/18 15:00 07/01/18 16:00 07/01/18 17:00 Temperature 98.3 F Pulse Rate 62 63 64 Respiratory Rate 19 17 Blood Pressure 123/56 L Pulse Oximetry 99 100 97 07/01/18 20:00 07/01/18 20:17 07/02/18 00:00 Temperature 98.6 F 98.1 F Pulse Rate 53 L 62 66 Respiratory Rate 20 16 21 Blood Pressure 132/60 131/61 Pulse Oximetry 100 100 100 07/02/18 00:28 07/02/18 03:49 07/02/18 04:00 Temperature Pulse Rate 64 70 67 Respiratory Rate 22 17 22 Blood Pressure 120/85 Pulse Oximetry 100 100 100 07/02/18 07:59 Temperature Pulse Rate 72 Respiratory Rate 16 Blood Pressure Pulse Oximetry 100 Intake & Output 07/01/18 07/02/18 07/02/18 18:59 06:59 18:59 Intake Total 1440 / 1440 480 / 480 Balance 1440 / 1440 480 / 480 Weight 57 kg Intake: Oral 1440 / 1440 480 / 480 Other: # Voids 4 3 # Incontinent Voids 3 3 Date of Last Bowel Movement 06/29/18 06/29/18 # Bowel Movements 0 Narrative: awake and alert, oriented to person place " hospital" person and year, laying falt ff all commands, speech clear, soft a little grumpy this am anicteric no facial asymmetry regular rhythm lungs- no rales no wheezes regular rhythmn abdomen soft, nontender right LE- blister-popped, superficial tear - Urinary Catheter Management Straight Cath placed during this visit: no Reason for continuing: Not indwelling catheter Results - Labs CBC & Chem 7: 06/30/18 02:57 07/01/18 04:57 Laboratory Results - last 24 hr 07/01/18 07/01/18 07/01/18 04:57 09:30 12:25 Sodium 142 Potassium 4.3 Chloride 105 Carbon Dioxide 28.6 Anion Gap 8 BUN 22 H Creatinine 1.17 H Estimated GFR 44 L POC Glucose 88 101 Random Glucose 71 L Calcium 9.1 07/01/18 07/01/18 07/02/18 16:56 23:30 06:33 Sodium Potassium Chloride Carbon Dioxide Anion Gap BUN Creatinine Estimated GFR POC Glucose 107 109 98 Random Glucose Calcium Assessment and Plan - Plan 87 years old female Syncope likely cardiogenic - sinus bradycardia on admission -continue telemetry- reviewed monitor -last 24 hours- no further episodes of bradycardia- HR- 60s, ? occasional WCT vs artifacts - echo, carotid US unremarkable - Head CT negative - cardiology ff - will d/w them- Dr. Padron - blood glucose radings - good- patient not a diabetic- DC BGM. History of CHF- not in clinical failure - cardiology ff- Dr. Padron COPD- no distress continue with 02 to keep sats > 92% Incentive spirometery hourly CHIARA likely with underlying CKD FF BMP- creatinine improving GI: On PO diet PPI HYpothyroidism TSH: 5.2, FT3: low 1.63, FT4: 1.26 started on Synthroid 25mcg daily OP ff up TSH in 6-8 weeks Thrombocytopenia - no old labs for comparison recheck- 110- stable Ff as OP Likely starting dementia- daughter concerned about increasing forgetfulness during this admission get cognitive evaluation- consulted speech therapy Increase activity- out of bed to chair for all meals ambulate daily DVT GI prophylaxis -Teds SCDs -Subcu heparin- hold with low platelet -PPI po DC planning - SNF vs [facility]- patient came from an [facility] transfer to medical floor
[2018-07-02] MEDS: Senna/Docusate Sodium 8.6/50 MG Tablet PO SCH ×2 (14:38→21:36)
[2018-07-03] MEDS: Chlorhexidine Gluconate 2% 1 Pack (2 Cloths) TOPICAL SCH (06:04)
[2018-07-03] MEDS: Insulin NovoLOG Aspart Correctional Sugar Inj SQ SCH ×3 (06:12→13:13)
[2018-07-03] MEDS: Senna/Docusate Sodium 8.6/50 MG Tablet PO SCH (11:05)
--- NOTE | 2018-07-03 13:51 | P.DCO ---
- Physical Therapy Order: Evaluate and treat - Home Health Nursing Order: Medical education, Nursing assessment with vital signs Instructions: Home health nurse for medication management. - Home Health Aide Order: To assist in: Bathing and personal care - Computer Application Developer Order: To evaluate: Living conditions/environment, Support services Order: To provide: Long range planning - Certification I have seen patient Annetta Wild on 07/03/18. My clinical findings support the need for the requested home health care services because: Deconditioned with increased weakness, Medication compliance is questionable I certify that my clinical findings support that this patient is homebound because: Unable to use public transportation
--- NOTE | 2018-07-03 16:50 | P.PNIM ---
Subjective Interval history: Patient says she is feeling well. Denies any chest pain or shortness of breath. Denies lightheadedness or dizziness. Physical Exam Vital signs: Vital Signs 07/02/18 17:00 07/02/18 19:50 07/02/18 20:00 Temperature Pulse Rate 58 L 61 Respiratory Rate 20 37 H Blood Pressure 119/56 L Pulse Oximetry 97 99 100 07/02/18 21:03 07/02/18 21:29 07/03/18 00:30 Temperature 97.6 F 98.6 F Pulse Rate 51 L 58 L 57 L Respiratory Rate 24 24 Blood Pressure 153/70 H 136/66 Pulse Oximetry 98 97 07/03/18 03:08 07/03/18 04:00 07/03/18 04:03 Temperature 98.1 F Pulse Rate 51 L 52 L 68 Respiratory Rate 22 Blood Pressure 139/76 Pulse Oximetry 98 07/03/18 08:00 07/03/18 08:30 07/03/18 12:00 Temperature 97.9 F 97.8 F Pulse Rate 57 L 61 Respiratory Rate 16 18 Blood Pressure 143/60 H 120/68 Pulse Oximetry 98 98 97 Intake & Output 07/02/18 07/03/18 07/03/18 18:59 06:59 18:59 Intake Total 300 / 300 Balance 300 / 300 Weight 55.5 kg Intake: Oral 300 / 300 Other: # Voids 2 # Urine Diapers 2 Date of Last Bowel Movement 06/29/18 Narrative: GENERAL: Patient sitting up in bed. Appears comfortable. Alert. SKIN: Warm and dry. HEAD: Normocephalic. EYES: No scleral icterus. No injection or drainage. NECK: Supple, trachea midline. No JVD. CARDIOVASCULAR: Regular rate and rhythm without murmurs, gallops, or rubs. RESPIRATORY: Breath sounds equal bilaterally. No accessory muscle use. GASTROINTESTINAL: Abdomen soft, non-tender, nondistended. MUSCULOSKELETAL: No cyanosis, or edema. BACK: Nontender without obvious deformity. No CVA tenderness. - Urinary Catheter Management Straight Cath placed during this visit: no Reason for continuing: Not indwelling catheter Results - Labs CBC & Chem 7: 06/30/18 02:57 07/01/18 04:57 Laboratory Results - last 24 hr 07/03/18 07/03/18 07/03/18 00:41 06:12 09:30 POC Glucose 92 87 118 H Assessment and Plan - Plan 87 years old female //Syncope likely cardiogenic - sinus bradycardia on admission -continue telemetry- reviewed monitor -last 24 hours- no further episodes of bradycardia- HR- 60s, ? occasional WCT vs artifacts - echo, carotid US unremarkable - Head CT negative - cardiology ff - will d/w them- Dr. Padron - blood glucose radings - good- patient not a diabetic- DC BGM. = Improved and stable off of home medications. Appreciate cardiology assistance. //History of CHF- not in clinical failure - cardiology ff- Dr. Padron //COPD- no distress continue with 02 to keep sats > 92% Incentive spirometery hourly //CHIARA likely with underlying CKD FF BMP- creatinine improving //GI: On PO diet PPI //HYpothyroidism TSH: 5.2, FT3: low 1.63, FT4: 1.26 started on Synthroid 25mcg daily OP ff up TSH in 6-8 weeks //Thrombocytopenia - no old labs for comparison recheck- 110- stable Ff as OP //Likely starting dementia- daughter concerned about increasing forgetfulness during this admission = Recommend cognitive evaluation as outpatient. //Increase activity- out of bed to chair for all meals ambulate daily DVT GI prophylaxis -Teds SCDs -Subcu heparin- hold with low platelet -PPI po DC planning - SNF vs [facility]- patient came from an [facility] transfer to medical floor Discharge Planning: Discharge to SNF.
--- NOTE | 2018-07-03 16:51 | P.DS ---
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 Blood pressure on scene was in the 90s. The patient was rushed to the ED at [place]. She has had no pain there however history is limited due to forgetfulness. History is obtained primarily from medical records. The weakness loss of consciousness was about 30 seconds. No seizure activity. The patient's heart rate at [place] emergency department was found to be in 40s and she has been transferred to [facility] for further cardiological evaluation. DS: Summary Hospital Course: Patient found to be bradycardic on admission, however this resolved. Syncope workup performed with echocardiogram, carotid Doppler unremarkable. TSH found to be 5.2, and patient started on low dose Synthroid. Blood pressures found to be borderline low and medications were adjusted. Patient will need to follow with cardiology, primary care as outpatient. For problem-based summary from most recent progress note, please see below. 87 years old female //Syncope likely cardiogenic - sinus bradycardia on admission -continue telemetry- reviewed monitor -last 24 hours- no further episodes of bradycardia- HR- 60s, ? occasional WCT vs artifacts - echo, carotid US unremarkable - Head CT negative - cardiology ff - will d/w them- Dr. Padron - blood glucose radings - good- patient not a diabetic- DC BGM. = Improved and stable off of home medications. Appreciate cardiology assistance. //History of CHF- not in clinical failure - cardiology ff- Dr. Padron //COPD- no distress continue with 02 to keep sats > 92% Incentive spirometery hourly //CHIARA likely with underlying CKD FF BMP- creatinine improving //GI: On PO diet PPI //HYpothyroidism TSH: 5.2, FT3: low 1.63, FT4: 1.26 started on Synthroid 25mcg daily OP ff up TSH in 6-8 weeks //Thrombocytopenia - no old labs for comparison recheck- 110- stable Ff as OP //Likely starting dementia- daughter concerned about increasing forgetfulness during this admission = Recommend cognitive evaluation as outpatient. //Increase activity- out of bed to chair for all meals ambulate daily DVT GI prophylaxis -Teds SCDs -Subcu heparin- hold with low platelet -PPI po DC planning - SNF vs [facility]- patient came from an [facility] transfer to medical floor Discharge Planning: Discharge to SNF. - Time Spent with Patient Total time spent providing and/or coordinating discharge services: Greater than 30 minutes Exam Vital signs: Vital Signs 07/02/18 17:00 07/02/18 19:50 07/02/18 20:00 Temperature Pulse Rate 58 L 61 Respiratory Rate 20 37 H Blood Pressure 119/56 L Pulse Oximetry 97 99 100 07/02/18 21:03 07/02/18 21:29 07/03/18 00:30 Temperature 97.6 F 98.6 F Pulse Rate 51 L 58 L 57 L Respiratory Rate 24 24 Blood Pressure 153/70 H 136/66 Pulse Oximetry 98 97 07/03/18 03:08 07/03/18 04:00 07/03/18 04:03 Temperature 98.1 F Pulse Rate 51 L 52 L 68 Respiratory Rate 22 Blood Pressure 139/76 Pulse Oximetry 98 07/03/18 08:00 07/03/18 08:30 07/03/18 12:00 Temperature 97.9 F 97.8 F Pulse Rate 57 L 61 Respiratory Rate 16 18 Blood Pressure 143/60 H 120/68 Pulse Oximetry 98 98 97 Intake & Output 07/02/18 07/03/18 07/03/18 18:59 06:59 18:59 Intake Total 300 / 300 Balance 300 / 300 Weight 55.5 kg Intake: Oral 300 / 300 Other: # Voids 2 # Urine Diapers 2 Date of Last Bowel Movement 06/29/18 Results Procedures completed during hospitalization: no invasive procedures performed. Labs on day of discharge: Labs from last 24 hours 07/03/18 07/03/18 07/03/18 09:30 06:12 00:41 POC Glucose 118 H 87 92 - Impressions ITS Impressions Chest X-Ray 06/28/18 16:42 CONCLUSION: Minimal basilar atelectasis or scarring. Aortic stent graft as above. Head CT 06/28/18 16:42 CONCLUSION: 1. No acute intracranial abnormality. 2. Chronic small vessel ischemic change. 3. 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 . Carotid Doppler Study 06/30/18 00:00 CONCLUSION: No hemodynamically significant stenosis in either carotid artery. Discharge Plan - Discharge Disposition Patient Disposition: 03 Discharge to SNF - Discharge Condition Condition: Good - Discharge Order Discharge Orders: Discharge Order (Routine); Ordered 07/03/18 Ordered By: Rajendra Pang - Discharge Details Anticipated Discharge Date: 07/03/18 - Physicians Team Primary Care Provider: Pete Doan Attending Provider: Rajendra Pang Other Providers: Jessi Padron MD ; [facility]
== END 2018-07-03 18:41 ==
LOC: PHED 16:28 → PHEDA 18:36 → HIMC 21:05 → HCIN 07-02 20:29
PROVIDERS: ADMIT Internal Medicine; ATTEND Internal Medicine